=== PATIENT | male | born 1940 | race Caucasian/White ===

== ENCOUNTER 2023-12-19 18:33 | Inpatient (IN) | payer OTHER ==
[2023-12-19] MEDS ORDERED: MORPHINE 4 MG/ML SYR ONE ×2 (20:47→23:17)
[2023-12-19] MEDS ORDERED: ONDANSETRON 4 MG/2 ML VIAL ONE (20:47)
[2023-12-19] MEDS ORDERED: NA CHLORIDE 0.9% 1,000 ML ONE (20:48)
[2023-12-19 20:59] LABS: Absolute Lymphocytes (CBC) 1.7 K/uL (0.7-4.9); Absolute Monocytes 1.7 K/uL (0.1-1.3); Absolute Neutrophil 9.2 K/uL (1.8-8.0); Basophils % 0.3 % (0-1.3); Eosinophils % 0.2 % (0-4.4); Hematocrit 48.6 % (39.6-49.0); Lymphocytes % 13.2 % (15.3-44.8); MCH 31.5 pg (27.0-35.0); MCHC 32.8 g/dL (32.0-36.0); MCV 96.1 fL (80-100); MPV 8.1 fL (7.6-11.3); Monocytes % 13.2 % (3.3-12.3); Neutrophils % 73.1 % (41.7-73.7); Nucleated Red Blood Cells % 0.1 % (0-0); Platelets 304 thou/uL (152-406); RBC Red Blood Cell Count 5.06 M/uL (4.33-5.43); Red Cell Distribution Width 13.4 % (12.1-15.2)
[2023-12-19 21:02] LABS: Specific Gravity 1.028 (1.005-1.030); Sqamous Epithelial <5 /HPF (None Seen); Urine Bacteria <20 /HPF (<20); Urine Bilirubin NEGATIVE (Negative); Urine Blood 1+ (Negative); Urine Clarity Turbid (Clear); Urine Color Yellow (Yellow); Urine Culture Reflex Order NOT NEEDED; Urine Glucose NEGATIVE (Negative); Urine Ketones 1+ (Negative); Urine Microscopic Reflex YN ORDER UMIC; Urine Mucus Slight /HPF (None Seen); Urine Nitrite NEGATIVE (Negative); Urine Protein 1+ (Negative); Urine Urobilinogen Normal (Normal); Urine WBC <5 /HPF (<5); Urine pH 5.5 (5.0-7.0)
[2023-12-19 21:14] LABS: Albumin 3.7 g/dL (3.4-5.0); Albumin/Globulin Ratio 0.9 (1.1-1.8); Anion Gap 11.1 mEq/L (5.0-15.0); Bilirubin Total 0.9 mg/dL (0.2-1.0); Potassium 4.1 mEq/L (3.5-5.1); Protein, Total 7.7 g/dL (6.4-8.2)
[2023-12-19 22:02] LABS: C-Reactive Protein 34.2 mg/L (<3.00)
--- NOTE | 2023-12-19 22:37 | RAD REPORT ---
EXAM DESCRIPTION: CT - Abdomen Pelvis Wo Contrast - 12/19/2023 10:07 pm CLINICAL HISTORY: Abdominal pain COMPARISON: None TECHNIQUE: Computed axial tomography of the abdomen and pelvis was obtained. IV and oral contrast we re not requested. All CT scans are performed using dose optimization technique as appropriate and may include automated exposure control or mA/KV adjustment according to patient size. FINDINGS: The evaluation of solid organs, vessels and bowel is limited secondary to the lack of con trast administration. Bilateral renal cysts. Some are simple and some are complex. Tiny right renal calculus Moderate right hydronephrosis. 6 millimeter calculus mid right ureter. Liver, spleen, pancreas and adrenals grossly A small umbilical hernia Prostate gland moderately enlarged. No evidence diverticulitis Small hiatal hernia IMPRESSION: 6 millimeter calculus mid right ureter resulting in moderate right hydronephrosis
--- NOTE | 2023-12-19 23:02 | ER ---
Nurse's Notes [facility] Name: Martín Bee Age: 83 yrs Sex: Male : 1940 Arrival Date: 12/19/2023 Time: 18:33 Bed 20 Private MD: Diagnosis: Right Ureteral Stone With Obstruction and Hydronephrosis , Presentation: 12/18 18:55 Chief complaint: Patient states: low abdominal pain and low back pain onset Tuesday cm10 Morning. Pt also reports urinary frequency and low grade fever at home. Coronavirus screen: Client denies travel out of the [place] in the last 14 days. At this time, the client does not indicate any symptoms associated with coronavirus-19. Ebola Screen: Patient denies travel to an Ebola-affected area in the 21 days before illness onset. No symptoms or risks identified at this time. Initial Sepsis Screen: Does the patient meet any 2 criteria? No. Patient's initial sepsis screen is negative. Does the patient have a suspected source of infection? No. Patient's initial sepsis screen is negative. Risk Assessment: Do you want to hurt yourself or someone else? Patient reports no desire to harm self or others. Onset of symptoms was December 19, 2023. 18:55 Method Of Arrival: Wheelchair cm10 18:55 Acuity: CHANDLER 3 cm10 Triage Assessment: 19:02 General: Appears in no apparent distress. uncomfortable, Behavior is calm, cooperative, cm10 appropriate for age. Neuro: No deficits noted. Level of Consciousness is awake, alert, obeys commands, Oriented to person, place, time, situation, Appropriate for age. Historical: - Allergies: 19:01 No Known Allergies; cm10 - PMHx: 19:01 Hypertensive disorder; Kidney stone; Pancreatitis; Hypercholesterolemia; cm10 - Immunization history:: Adult Immunizations up to date. - Infectious Disease History:: Denies. - Social history:: Smoking status: Patient denies any tobacco usage or history of. - Family history:: not pertinent. - Hospitalizations: : No recent hospitalization is reported. Screenin:00 [facility] ED Fall Risk Assessment (Adult) History of falling in the last 3 months, me1 including since admission No falls in past 3 months (0 pts) Confusion or Disorientation No (0 pts) Intoxicated or Sedated No (0 pts) Impaired Gait No (0 pts) Mobility Assist Device Used No (0 pt) Altered Elimination No (0 pt) Score/Fall Risk Level 0 - 2 = Low Risk Maintained a safe environment, Provided non-skid footwear, Hourly rounding (assess needs \T\ fall precautionary measures) done. Abuse screen: Denies threats or abuse. Nutritional screening: No deficits noted. Tuberculosis screening: No symptoms or risk factors identified. Assessment: 21:00 General: Appears uncomfortable, ill, well groomed, well developed, well nourished, me1 Behavior is calm, cooperative, appropriate for age, Reports low abdominal pain and low back pain onset Tuesday Morning. Pt also reports urinary frequency and low grade fever at home. Pain: Complains of pain in suprapubic area Pain radiates to left low back and right low back Pain currently is 7 out of 10 on a pain scale. Quality of pain is described as pressure, sharp, Pain began gradually, 1 day ago. Is continuous. Neuro: Level of Consciousness is awake, alert, obeys commands, Oriented to person, place, time, situation, Appropriate for age. Cardiovascular: Patient's skin is warm and dry. Respiratory: Airway is patent Respiratory effort is even, unlabored, Respiratory pattern is regular, symmetrical. GI: No signs and/or symptoms were reported involving the gastrointestinal system. : Reports pain in suprapubic area in lower back since tuesday urinary frequency. EENT: No signs and/or symptoms were reported regarding the EENT system. Derm: Skin is intact, is healthy with good turgor, Skin is pink, warm \T\ dry. Musculoskeletal: No signs and/or symptoms reported regarding the musculoskeletal system. 12/19 00:00 General: Appears in no apparent distress. uncomfortable, Behavior is calm, cooperative, jw7 appropriate for age. 00:00 Pain: Complains of pain in abdomen Pain radiates to right low back and left low back jw7 Pain currently is 4 out of 10 on a pain scale. Quality of pain is described as pressure, sharp, Pain began gradually, Is continuous. Neuro: Level of Consciousness is awake, alert, obeys commands, Oriented to person, place, time, situation, Appropriate for age. Cardiovascular: Heart tones S1 S2 present Capillary refill < 3 seconds Clubbing of nail beds is absent JVD is absent Patient's skin is warm and dry. Respiratory: Airway is patent Trachea midline Respiratory effort is even, unlabored, Respiratory pattern is regular, symmetrical. GI: Abdomen is flat, non-distended, Bowel sounds present X 4 quads. Abd is soft Reports lower abdominal pain. : Reports pain urinary frequency. EENT: No deficits noted. No signs and/or symptoms were reported regarding the EENT system. Derm: Skin is intact, is healthy with good turgor, Skin is dry, Skin is normal, Skin temperature is warm. Musculoskeletal: Circulation, motion, and sensation intact. Range of motion: intact in all extremities. 01:00 General: Pt admitted to ER HOLD, please see [facility] for Charting and Vital Signs. jw7 Vital Signs: 12/18 18:55 BP 156 / 82; Pulse 75; Resp 18; Temp 97.6(O); Pulse Ox 98% on R/A; Weight 73.94 kg; cm10 Height 6 ft. 0 in. ; Pain 7/10; 19:30 BP 146 / 79; Pulse 70; Resp 16; Pulse Ox 96% on R/A; me1 21:30 BP 169 / 77; Pulse 67; Resp 15; Pulse Ox 95% on R/A; me1 22:30 BP 172 / 87; Pulse 74; Resp 16; Pulse Ox 95% on R/A; me1 23:00 BP 170 / 83; Pulse 76; Resp 16; Pulse Ox 96% on R/A; me1 23:30 BP 158 / 75; Pulse 78; Resp 17; Pulse Ox 92% on R/A; me1 18:55 Body Mass Index 22.11 (73.94 kg, 182.88 cm) cm10 18:55 Pain Scale: Adult cm10 ED Course: 18:37 Patient arrived in ED. ra3 18:38 Dat Bryant MD is Attending Physician. rn 19:01 Triage completed. cm10 19:02 Arm band placed on Patient placed in waiting room. cm10 19:11 Radiology exam delayed due to IV insertion attempt and/or patient not having nj appropriate IV at this time. 19:11 Radiology exam delayed due to lab results not completed at this time. (BUN/Creatinine). nj 20:28 Summer Sanchez, RN is Primary Nurse. me1 20:45 Radiology exam delayed due to lab results not completed at this time. (BUN/Creatinine). nj 20:46 Initial lab(s) drawn, by ne, sent to lab. Urine collected: clean catch specimen, clear. me1 Inserted saline lock: 22 gauge in right antecubital area, using aseptic technique. 20:59 Attending Physician role handed off by Dat Bryant MD sp4 20:59 Christiano Paris MD is Attending Physician. sp4 21:00 Patient has correct armband on for positive identification. Bed in low position. Call me1 light in reach. Side rails up X2. Provided Education on: POC. Verbalized understanding.. Client placed on continuous cardiac and pulse oximetry monitoring. NIBP monitoring applied. Pulse ox on. NIBP on. 21:00 CBC with Diff Sent. me1 21:00 CMP Sent. me1 21:00 Lipase Sent. me1 21:00 Urinalysis w/ reflexes Sent. me1 21:00 No provider procedures requiring assistance completed. me1 22:09 CT Abd/Pelvis - Without Contrast In Process Unspecified. EDMS 23:01 Emily Garcia is Hospitalizing Provider. sp4 12/19 02:17 Patient admitted, IV remains in place. jw7 Administered Medications: 12/18 20:59 Drug: NS 0.9% IV 1000 ml IV at 1 bolus Per protocol; 1000 mL bolus Route: IV; Rate: 1 me1 bolus; Site: right antecubital; 23:28 Follow up: Response: No adverse reaction; IV Status: Completed infusion me1 20:59 Drug: Ondansetron IVP 4 mg IVP once; over 2 minutes Route: IVP; Site: right antecubital;me1 23:28 Follow up: Response: No adverse reaction; Nausea is decreased me1 21:00 Drug: morphine IVP or IV 4 mg IVP once over 4 mins Route: IVP; Infused Over: 4 mins; me1 Site: right antecubital; 23:28 Follow up: Response: No adverse reaction; Pain is decreased me1 23:24 Drug: Flomax PO 0.4 mg PO once Route: PO; me1 23:24 Follow up: Response: No adverse reaction me1 23:24 Drug: morphine IVP or IV 4 mg IVP once over 4 mins Route: IVP; Infused Over: 4 mins; ne1 Site: right antecubital; 23:24 Follow up: Response: No adverse reaction; Pain is decreased me1 Medication: 21:00 VIS not applicable for this client. me1 Outcome: 23:02 Decision to Hospitalize by Provider. sp4 12/19 02:17 Admitted to ER Hold. Please see [facility] for further documentation. jw7 Condition: stable Instructed on the need for admit, Demonstrated understanding of instructions, 12:53 Patient left the ED. ll1 Signatures: Dispatcher [employer] EDMS Dat Bryant MD MD rn Jordan, Nathan nj Lewis, Lynsay, RN RN 1 Angelica Crews RN RN jw7 Christiano Paris MD MD sp4 Karen Ware RN RN cm10 Summer Sanchez RN RN ne1 Viviane Ríos 3 Corrections: (The following items were deleted from the chart) 12/18 23:06 18:55 Chief complaint: Patient states: low abdominal pain and low back pain onset me1 Tuesday Morning. Pt also reports urinary frequency and low grade fever at home. cm10
--- NOTE | 2023-12-19 23:02 | EDPHYS ---
Physician Documentation [facility] Name: Martín Bee Age: 83 yrs Sex: Male : 1940 Arrival Date: 12/19/2023 Time: 18:33 Bed 20 Private MD: ED Physician Christiano Paris HPI: 12/18 19:35 This 83 yrs old Male presents to ER via Wheelchair with complaints of Low Back Pain - rn stomach pain. 19:35 The patient presents with abdominal pain in the lower abdomen. Onset: The rn symptoms/episode began/occurred yesterday. The symptoms radiate to back. Associated signs and symptoms: Pertinent positives: dysuria, fever, nausea, Pertinent negatives: blood in stools, chest pain. Modifying factors: The symptoms are alleviated by nothing, the symptoms are aggravated by nothing. Severity of pain: At its worst the pain was moderate in the emergency department the pain is unchanged. The patient has not experienced similar symptoms in the past. Patient reports lower abdominal pain, radiates to back, associated with nausea and increased urinary frequency. Began yesterday. Reported subjective fever and chills.. Historical: - Allergies: 19:01 No Known Allergies; cm10 - PMHx: 19:01 Hypertensive disorder; Kidney stone; Pancreatitis; Hypercholesterolemia; cm10 - Immunization history:: Adult Immunizations up to date. - Infectious Disease History:: Denies. - Social history:: Smoking status: Patient denies any tobacco usage or history of. - Family history:: not pertinent. - Hospitalizations: : No recent hospitalization is reported. ROS: 19:35 Constitutional: Positive for fever and chills Cardiovascular: Negative for chest pain, rn palpitations, and edema, Respiratory: Negative for shortness of breath, cough, wheezing, and pleuritic chest pain, Abdomen/GI: Positive for lower abdominal pain with nausea Back: Positive for lower back pain : Positive for increased urinary frequency MS/Extremity: Negative for injury and deformity, Skin: Negative for injury, rash, and discoloration, Neuro: Positive for generalized weakness Exam: 19:35 Constitutional: This is a well developed, well nourished patient who is awake, alert, rn appears like does not feel well Head/Face: Normocephalic, atraumatic. Cardiovascular: Regular rate and rhythm. No pulse deficits. Respiratory: No increased work of breathing, no retractions or nasal flaring. Abdomen/GI: Soft, periumbilical and suprapubic tenderness, no peritoneal signs Back: No CVA tenderness MS/ Extremity: Pulses equal, no cyanosis. Neuro: Awake and alert, GCS 15 Vital Signs: 18:55 BP 156 / 82; Pulse 75; Resp 18; Temp 97.6(O); Pulse Ox 98% on R/A; Weight 73.94 kg; cm10 Height 6 ft. 0 in. ; Pain 7/10; 19:30 BP 146 / 79; Pulse 70; Resp 16; Pulse Ox 96% on R/A; me1 21:30 BP 169 / 77; Pulse 67; Resp 15; Pulse Ox 95% on R/A; me1 22:30 BP 172 / 87; Pulse 74; Resp 16; Pulse Ox 95% on R/A; me1 23:00 BP 170 / 83; Pulse 76; Resp 16; Pulse Ox 96% on R/A; me1 23:30 BP 158 / 75; Pulse 78; Resp 17; Pulse Ox 92% on R/A; me1 18:55 Body Mass Index 22.11 (73.94 kg, 182.88 cm) cm10 18:55 Pain Scale: Adult cm10 MDM: 18:38 Patient medically screened. rn 20:16 Transition of care: After a detail discussion of the patient's case, care is rn transferred to Christiano Paris MD. 23:00 ED course: EXAM DESCRIPTION: CT - Abdomen Pelvis Wo Contrast - 12/19/2023 10:07 pm sp4 CLINICAL HISTORY: Abdominal pain COMPARISON: None TECHNIQUE: Computed axial tomography of the abdomen and pelvis was obtained. IV and oral contrast were not requested. All CT scans are performed using dose optimization technique as appropriate and may include automated exposure control or mA/KV adjustment according to patient size. FINDINGS: The evaluation of solid organs, vessels and bowel is limited secondary to the lack of contrast administration. Bilateral renal cysts. Some are simple and some are complex. Tiny right renal calculus Moderate right hydronephrosis. 6 millimeter calculus mid right ureter. Liver, spleen, pancreas and adrenals grossly A small umbilical hernia Prostate gland moderately enlarged. No evidence diverticulitis Small hiatal hernia IMPRESSION: 6 millimeter calculus mid right ureter resulting in moderate right hydronephrosis . 12/19 01:32 Differential diagnosis: cholecystitis, Cholelithiasis, diverticulitis, gastritis, Renal sp4 stones. 01:32 Data reviewed: vital signs, nurses notes, lab test result(s), radiologic studies, CT sp4 scan. 12/18 19:02 Order name: CBC with Diff; Complete Time: 21:25 rn 12/18 19:02 Order name: CMP; Complete Time: 22:56 rn 12/18 19:02 Order name: Lipase; Complete Time: 22:56 rn 12/18 19:02 Order name: Urinalysis w/ reflexes; Complete Time: 21:25 rn 12/18 21:53 Order name: C-Reactive Protein; Complete Time: 22:56 EDMS 12/19 00:40 Order name: Urinalysis w/ reflexes EDMS 12/19 00:40 Order name: CBC with Automated Diff EDMS 12/19 00:40 Order name: CBC with Automated Diff EDMS 12/19 00:40 Order name: Comprehensive Metabolic Panel EDMS 12/19 00:40 Order name: Comprehensive Metabolic Panel EDMS 12/19 12:36 Order name: Protime (+INR) EDMS 12/18 21:38 Order name: CT Abd/Pelvis - Without Contrast; Complete Time: 22:56 sp4 12/19 12:25 Order name: RAD EDMS 12/18 19:02 Order name: IV Saline Lock; Complete Time: 21:00 rn 12/18 19:02 Order name: Labs collected and sent; Complete Time: 21:00 rn Administered Medications: 12/18 20:59 Drug: NS 0.9% IV 1000 ml IV at 1 bolus Per protocol; 1000 mL bolus Route: IV; Rate: 1 me1 bolus; Site: right antecubital; 23:28 Follow up: Response: No adverse reaction; IV Status: Completed infusion me1 20:59 Drug: Ondansetron IVP 4 mg IVP once; over 2 minutes Route: IVP; Site: right antecubital;me1 23:28 Follow up: Response: No adverse reaction; Nausea is decreased me1 21:00 Drug: morphine IVP or IV 4 mg IVP once over 4 mins Route: IVP; Infused Over: 4 mins; me1 Site: right antecubital; 23:28 Follow up: Response: No adverse reaction; Pain is decreased me1 23:24 Drug: Flomax PO 0.4 mg PO once Route: PO; me1 23:24 Follow up: Response: No adverse reaction me1 23:24 Drug: morphine IVP or IV 4 mg IVP once over 4 mins Route: IVP; Infused Over: 4 mins; me1 Site: right antecubital; 23:24 Follow up: Response: No adverse reaction; Pain is decreased me1 Disposition Summary: 12/19/23 23:02 Hospitalization Ordered Notes: Hospitalization Status: Observation sp4 Provider: Emily Garcia sp4 Condition: Stable sp4 Problem: new sp4 Symptoms: have improved sp4 Bed/Room Type: Standard sp4 Location: Telemetry/MedSurg (observation)(12/20/23 11:35) bd Room Assignment: 219(12/20/23 11:35) bd Diagnosis - Right Ureteral Stone With Obstruction and Hydronephrosis , sp4 Forms: - Medication Reconciliation Form sp4 - SBAR form sp4 - Leadership Thank You Letter sp4 Signatures: Dispatcher [employer] EDMS Sherri Coronado Roman, MD MD rn Bryson, James RN RN jb4 Christiano Paris MD MD sp4 Karen Ware RN RN cm10 Summer Sanchez RN RN me1 Corrections: (The following items were deleted from the chart) 21:39 21:39 Abdomen Pelvis Wo Con+CT.RAD.BRZ ordered. EDMS EDMS 21:44 19:02 Abdomen Pelvis W Con+CT.RAD.BRZ ordered. EDMS EDMS 21:53 21:38 C-REACTIVE PROTEIN+C.LAB.BRZ ordered. EDMS EDMS 23:52 23:02 Telemetry/MedSurg (observation) sp4 jb4 23:52 23:02 sp4 jb4 12/19 11:35 12/18 23:52 [facility] ER HOLD jb4 bd 12/19 11:12/18 23:52 ERHOLD- jb4 bd
[2023-12-19] MEDS ORDERED: TAMSULOSIN 0.4 MG SR CAP ONE (23:17)
[2023-12-20] MEDS ORDERED: MORPHINE 2 MG/ML SYR IV PRN (00:29)
[2023-12-20 01:41] VITALS: BMI 22.1
--- NOTE | 2023-12-20 02:02 | P.HP ---
Certification for Inpatient Patient admitted to: Inpatient With expected LOS: >2 Midnights Practitioner: I am a practitioner with admitting privileges, knowledge of patient current condition, hospital course, and medical plan of care. Services: Services provided to patient in accordance with Admission requirements found in Title 42 Section 412.3 of the Code of Federal Regulations Patient History Date of Service: 12/20/23 History of Present Illness: 83-year-old male presents with complaints of right lower quadrant periumbilical abdominal pain that radiated to his back. Onset 1 day ago. Pain progressively gotten worse. Denies having any fevers or dysuria. Reports pain was mostly anterior abdomen. He did report some nausea. Reports symptoms started early Tuesday morning. Pain progressed and presented to ER. In the ED patient had a CT scan of abdomen pelvis which showed obstructive renal stone. Urology was consulted. The patient reports that he had history of kidney stone 20 years ago. He does have multiple surgeries in the past including history of prostate, hernia as well as eye surgery. He denies having fevers but states he did feel warm with a temperature of 99 degrees. He does report he receives his medications at the [place] but receives medical care outside of [place]. In the ER urology was contacted recommend to make the patient n.p.o. for evaluation tomorrow - Past Medical/Surgical History Has patient received pneumonia vaccine in the past: Yes -: HTN -: Kidney Stones -: Pancreatitis -: Hypercholesterolemia - Social History Smoking Status: Never smoker Place of Residence: Home Review of Systems 10-point ROS is otherwise unremarkable General: Fever, Weakness, Malaise Gastrointestinal: Nausea, Abdominal Pain Physical Examination - Physical Exam General: Alert, Mild distress HEENT: Atraumatic, Normocephalic Neck: Supple Respiratory: Clear to auscultation bilaterally, Normal air movement Cardiovascular: No edema, Normal S1 S2 Gastrointestinal: Normal bowel sounds, Non-distended, No ascites, No masses, Tenderness Integumentary: No rashes Urinary: Other (no flank pain on exam ) - Studies Laboratory Data (last 24 hrs) 12/19/23 12/19/23 20:44 20:44 WBC 12.60 H Hgb 16.0 Hct 48.6 Plt Count 304 Sodium 136 Potassium 4.1 BUN 17 Creatinine 1.80 H Glucose 118 H Total Bilirubin 0.9 AST 31 ALT 33 Alkaline Phosphatase 98 Lipase 41 Assessment and Plan - Problems (Diagnosis) (1) Nephrolithiasis Current Visit: Yes Status: Acute (2) Abdominal pain Current Visit: Yes Status: Acute (3) Nausea Current Visit: Yes Status: Acute (4) Hydronephrosis Current Visit: Yes Status: Acute - Plan 83-year-old male presented with progressive abdominal pain. Diagnosed with obstructive kidney stone #Nephrolithiasis #Hydronephrosis #abdominal Pain #Leukocytosis #abnormal UA -- Admit to MedSur. Keep NPO. Urology consultation. IV fluids. Continue Rocephin. Follow-up cultures. Noted to have normal lipase -- PRN antiemetics #HTN -- Will hold antihypertensive medications overnight anticipate resuming tomorrow pending clinical course --prn hydralazine #JULIUS -- Continue IV fluids, repeat labs in a.m. Code: DNR/DNI Discharge Plan: Home Plan to discharge in: 48 Hours - Advance Directives Does patient have a Living Will: No Does patient have a Durable POA for Healthcare: No - Code Status/Comfort Care Code Status: Do Not Attempt Resuscitat
[2023-12-20] MEDS: NA CHLORIDE 0.9% 1,000 ML IV SCH (06:00)
[2023-12-20] MEDS ORDERED: NA CHLORIDE 0.9% 1,000 ML ONE (06:12)
[2023-12-20] MEDS ORDERED: CEFTRIAXONE 1000 MG/VIAL ONE (08:54)
[2023-12-20] MEDS ORDERED: NA CHLORIDE 0.9% 50 ML ONE (08:56)
[2023-12-20] MEDS ORDERED: ENOXAPARIN 40 MG/0.4 ML SQ SCH (09:00)
[2023-12-20] MEDS: CEFTRIAXONE 1,000 MG in NA CHLORIDE 0.9% 50 ML IVPB SCH (09:59)
--- NOTE | 2023-12-20 12:24 | RAD REPORT ---
EXAM DESCRIPTION: RAD - Chest Single View - 12/20/2023 12:12 pm CLINICAL HISTORY: or clearance Chest pain. COMPARISON: No comparisons FINDINGS: Portable technique limits examination quality. Emphysematous changes are present throughout the lungs. The heart is normal in size. No displaced fra ctures. IMPRESSION: Prominent COPD.
[2023-12-20 12:36] LABS: PT Prothrombin Time 11.7 SECONDS (9.4-12.5); Protime INR 1.05
[2023-12-20] MEDS: Ringers Lactate 1,000 ML IV ONE (13:00)
[2023-12-20] MEDS ORDERED: LIDOCAINE 1% MPF 5 ML VIAL ONE (13:01)
[2023-12-20] MEDS ORDERED: propofoL 200 MG/20 ML VIAL IV ONE (13:01)
[2023-12-20] MEDS ORDERED: FENTANYL CITR 250 MCG/5 ML ONE (13:01)
[2023-12-20] MEDS ORDERED: MIDAZOLAM HCL 2 MG/2 ML INJ ONE (13:01)
--- NOTE | 2023-12-20 13:17 | P.CNS ---
Date of Consult: 12/20/23 Reason for Consult: flank pain Chief Complaint: kidney stone History of Present Illness: 83-year-old gentleman with hypertension, hypercholesterolemia and history of pancreatitis as well as prior history of nephrolithiasis presents to the emergency department with some lower abdominal pain and right flank pain that have been present since Tuesday at 3 AM. He had had some chills as well as a low-grade temperature up to 99.5. He denied any vomiting, but he did have nausea. He denied any associated dysuria or gross hematuria. Past medical history: As above Past surgical history: Kidney stone surgery 20 years ago, TURP 20 years ago, bilateral inguinal hernias repaired Family history: Denies urologic malignancy Social history: He is a former smoker of 1/5 pack/day for 20 years but he quit in 1974 Examination: Alert and awake, oriented in no acute distress No dyspnea or sign of respiratory distress No cervical/supraclavicular adenopathy or thyromegaly Very hard of hearing Abdomen soft, nontender, nondistended No lower extremity tenderness or Homans' sign Lying comfortably in the bed able to move all extremities on request 12/20/2023 WBC 12.6, hemoglobin 16.0, platelets 304, creatinine 1.80 with EGFR 37, UA micro 1+ heme, 5-10 RBCs per hpf,trace leukocyte Estrace, <5 WBCs per hpf 12/19/2023 CT abdomen and pelvis without contrast findings: Bilateral simple and complex renal cysts. Tiny right renal calculus. Moderate right hydronephrosis. 6 mm calculus mid right ureter. No other significant abnormalities. Prostate gland moderately enlarged. -To my review of the CT scan, the right calculus seen in the kidney was intraparenchymal and small. A calculus in the mid ureter was 7 mm with moderate hydroureteronephrosis. The cysts were varying in size with density changes. 12/19/2023 chest x-ray IMPRESSION: Prominent COPD. Assessment and recommendation: 83-year-old gentleman with hypertension, hypercholesterolemia, history of pancreatitis and nephroureterolithiasis with right flank pain and right lower quadrant abdominal pain secondary to obstructing the right ureterolithiasis with right hydronephrosis and JULIUS suspected. -I counseled the patient that given the low-grade temperature experienced and his advanced age, he may not mount as well a febrile response, and the risks associated with attempting definitive management of his stone via ureteroscopy with laser lithotripsy could precipitate risk of systemic illness. As a result, I said the better point of valor would be to relieve the obstruction and allow resolution of his suspected JULIUS and then return at a later date to definitively manage the stone. He and his family agreed. -Cystoscopy with right retrograde pyelography and right ureteral stent placement recommended. I explained how the procedure was performed in detail, and we discussed the potential risks of infection, bleeding/gross hematuria, stent discomfort. -5% risk of need for percutaneous nephrostomy tube placement discussed if unable to place the stent. -Outpatient follow-up and rescheduling for definitive ureteroscopic management of his stone with laser lithotripsy will be required. -He is seen at the local [facility] for his primary care, and preoper ative evaluation/clearance may be requested from them as he was recently seen. -EKG and chest x-ray (above) in preparation for operative intervention shortly today. -N.p.o. Allergies No Known Allergies Allergy (Unverified 12/20/23 03:03) Home medications list reviewed: Yes Home Medications: Amlodipine [Norvasc*] 5 mg PO DAILY 12/20/23 Atorvastatin Calcium 40 mg PO BEDTIME 12/20/23 Celecoxib 200 mg PO QID 12/20/23 Cholecalciferol (Vitamin D3) [Vitamin D 5,000 IU Cap*] 5,000 unit PO DAILY 12/20/23 Trazodone HCl 100 mg PO BEDTIME 12/20/23 - Past Medical/Surgical History -: HTN -: Kidney Stones -: Pancreatitis -: Hypercholesterolemia - Social History Place of Residence: Home Physical Examination Temp Pulse Resp BP Pulse Ox 97.6 F 77 16 155/80 H 96 12/19/23 18:55 12/20/23 04:00 12/20/23 04:00 12/20/23 04:00 12/20/23 04:00 Laboratory Data (last 24 hrs) 12/19/23 12/19/23 20:44 20:44 WBC 12.60 H Hgb 16.0 Hct 48.6 Plt Count 304 Sodium 136 Potassium 4.1 BUN 17 Creatinine 1.80 H Glucose 118 H Total Bilirubin 0.9 AST 31 ALT 33 Alkaline Phosphatase 98 Lipase 41 - Problems (1) Acute right flank pain Current Visit: Yes Status: Acute (2) Hydronephrosis, right Current Visit: Yes Status: Acute (3) Ureterolithiasis Current Visit: Yes Status: Acute (4) Recurrent nephrolithiasis Current Visit: Yes Status: Acute (5) JULIUS (acute kidney injury) Current Visit: Yes Status: Acute (6) Abdominal pain Current Visit: Yes Status: Acute Qualifiers: Abdominal location: lower abdomen, unspecified Qualified Code(s): R10.30 - Lower abdominal pain, unspecified Conclusions/Impression: see A&P in HPI Critical Care: No Time Spent Managing Pts care (In Minutes): 35
[2023-12-20] MEDS: EPHEDRINE SULF 50 MG/ML VIAL ONE (13:43)
--- NOTE | 2023-12-20 14:08 | P.OP ---
Date of Service: 12/20/23 Preoperative diagnoses: Obstructive ureterolithiasis Right hydroureteronephrosis Acute kidney injury History of nephroureterolithiasis Complex renal cysts h/o TURP Postoperative diagnoses: Obstructive ureterolithiasis Right hydroureteronephrosis Acute kidney injury History of nephroureterolithiasis Complex renal cysts h/o TURP Principal procedures: Cystoscopy Right retrograde pyelography Right ureteral stent placement Indication for procedure: 83-year-old gentleman with hypertension, hypercholesterolemia, history of pancreatitis and nephroureterolithiasis with right flank pain and right lower quadrant abdominal pain secondary to obstructing the right ureterolithiasis with right hydronephrosis and JULIUS suspected. Procedure note: Consent was obtained in the preoperative holding area before he was transferred to the operative suite where general anesthesia was induced. He had been given ceftriaxone IV antimicrobial therapy in the emergency department. Pneumoboots were provided for DVT prophylaxis. He was placed in the lithotomy position, padded and secured to the table appropriately. His genitalia was prepped with Hibiclens and he was draped in standard fashion. The case was begun using a 22 [place]ian rigid cystoscope to traverse the urethra and into the bladder with ease. There was evidence of a prior TUR defect largely at the bladder neck. The bladder was mild to moderately trabeculated throughout. No papillary mucosal lesions, foreign bodies or stones were noted. The ureteral orifices were orthotopic in location. As such, I cannulated the right ureteral orifice using the tip of a 5 [place]ian ureteral access catheter. Right retrograde pyelography: Using a 70: 30 mixture of Omnipaque and saline, contrast was injected via the lumen of the 5 [place]ian ureteral access catheter and did propagate up the distal into the mid and proximal ureter before entering the renal pelvis and a very delayed fashion. Significant proximal ureteral dilation and pelviectasis as well as caliectasis was observed. A radiopaque calculus was also observed in the mid ureter. As a result, I passed a sensor wire via the 5 [place]ian ureteral access catheter and was able to easily navigated beyond the point of obstructing calculus and into the upper pole of the kidney. I then remove the 5 [place]ian ureteral access catheter leaving the wire in place, and passed over the wire a 6 [place]ian by 26 cm double-J ureteral stent. A coil was observed fluoroscopically in the upper pole of the right kidney and 1 cystoscopically was formed in his bladder. I then decompressed his bladder of fluid and urine, and I remove the cystoscope. He was then taken out of the lithotomy position, awakened from general anesthesia, transferred to a stretcher, and then transferred to the recovery room in good condition. Complications: None Discharge disposition: Outpatient follow-up will be required to discuss the followin. Need for definitive management of his obstructive ureterolithiasis via ureteroscopy with laser lithotripsy and stent exchange. ESWL could also be considered given the radiopaque nature of the calculus. 2. Metabolic stone profile assessment recommended after management of his obstructive ureterolithiasis. 3. Confirm resolution of his JULIUS and obtain a CT with IV contrast to compare with the noncontrast imaging and determine the degree of complexity of/Bosniak classify his bilateral complex renal cystic lesions. Consider MRI if baseline creatinine still inadequate.
[2023-12-20] MEDS: PHENAZOPYRIDINE 100MG TAB PO ONE ×2 (14:45)
--- NOTE | 2023-12-20 14:56 | RAD REPORT ---
EXAM DESCRIPTION: RAD - Urethrocystogrphy Retrograde - 12/20/2023 2:04 pm CLINICAL HISTORY: CYSTO COMPARISON: None available. FINDINGS: 4 images were sent to PACS, documenting fluoroscopy use during an image guided retrograde uretherocystography procedure. No radiologist was available for the procedure, nor will any image int erpretation he provided. Please refer to the procedural report for additional details. Fluoroscopy time: 0.09 minutes. IMPRESSION: Documentation of fluoroscopy utilization as above.
--- NOTE | 2023-12-20 22:28 | P.PN ---
Date of Service: 12/20/23 patient seen on rounds this morning ~7:50am reports pain improved after IV medication remote h/o stone awaiting urology - planning stent placement today will f/u after procedure check renal fxn in AM confirm home meds / restart as appropriate
[2023-12-21 06:19] LABS: Absolute Basophils 0.1 K/uL (0-0.5); Absolute Eosinophils 0.1 K/uL (0-0.5); Absolute Lymphocytes (CBC) 1.7 K/uL (0.7-4.9); Absolute Neutrophil 4.8 K/uL (1.8-8.0); Basophils % 0.8 % (0-1.3); Eosinophils % 0.8 % (0-4.4); Hematocrit 40.1 % (39.6-49.0); Hemoglobin 13.4 g/dL (13.6-17.9); Lymphocytes % 22.2 % (15.3-44.8); MCH 32.1 pg (27.0-35.0); MCHC 33.4 g/dL (32.0-36.0); MCV 96.2 fL (80-100); MPV 8.3 fL (7.6-11.3); Monocytes % 12.6 % (3.3-12.3); Neutrophils % 63.6 % (41.7-73.7); Nucleated Red Blood Cells % 0.3 % (0-0); Platelets 250 thou/uL (152-406); RBC Red Blood Cell Count 4.17 M/uL (4.33-5.43); Red Cell Distribution Width 13.1 % (12.1-15.2)
[2023-12-21 06:30] LABS: Anion Gap 8.5 mEq/L (5.0-15.0); Potassium 3.5 mEq/L (3.5-5.1)
--- NOTE | 2023-12-21 08:12 | P.PN ---
Date of Service: 12/21/23 Subjective: had condom cath placed d/t hematuria overnight / positional incontinence catheter with dark bloody urine minimal appetite. somewhat nauseous pain tolerable. slightly improved ROS: 10 point ROS as noted above, otherwise negative Physical Exam: GEN: Alert, oriented, appears restless HEENT: Normal conjunctiva, sclera anicteric CV: Regular rate and rhythm, no edema Pulm: Nonlabored respirations on room air, clear bilaterally ABD: soft, nontender, nondistended Neuro: Normal speech, normal affect Condom cath placed overnight d/t hematuria; tubing with dark red bloody urine this morning Problem List: Obstructive ureterolithiasis with right hydroureteronephrosis, s/p right retrograde pyelography and right ureteral stent placement (12/19) Hematuria after stent placement hx of nephroureterolithiasis JULIUS, resolved Complex renal cysts h/o TURP (20+ years ago) COPD, chronic Hyperlipidemia CT abdomen (12/18): 6mm right ureter calculus with moderate right sided hydro. Mix of simple and complex bilateral renal cysts. Dr. Sim, urology, consulted s/p right retrograde pyelography and right ureteral stent placement (12/19) will need to follow up with urology as outpatient for ureteroscopy with laser lithotripsy and stent exchange. recommend outpatient CT with contrast or MRI to further evaluate complexity of renal cystic lesions. 12/20 - overnight patient had condom cath placed d/t hematuria - currently draining dark red bloody urine. continue empiric rocephin for now (12/19-) plan to discharge with 1 week of cefixime per Dr. Sim JULIUS resolved after stent placement / IVF confirm home meds, restart as appropriate continue home amlodipine, statin continue IV fluids VTE: hold secondary to arline hematuria Code: DNR Dispo: Home, ~48hrs Time Spent Managing Pts Care (In Minutes): 45
[2023-12-21] MEDS: ONDANSETRON 4 MG/2 ML VIAL IV PRN (08:29)
[2023-12-21] MEDS: AMLODIPINE 5 MG TAB PO SCH (09:00)
--- NOTE | 2023-12-21 11:46 | EKG ---
Test Date: 2023-12-20 Test Time: 12:11:20 Mortgage Manager: CLAU MEASUREMENT RESULTS: Intervals: Rate: 72 [place]: QRSD: 92 QT: 388 QTc: 424 [place]: P: [place]: QRS: 65 T: 31 INTERPRETIVE STATEMENTS: Normal sinus rhythm Abnormal ECG No previous ECG available for comparison Electronically Signed On 12-21-23 11:43:51 CDT by Yuniel Hayes
[2023-12-21] MEDS: HYDRALAZINE HCL 20 MG/ML VIAL IV PRN (13:22)
[2023-12-21] MEDS: OXYBUTYNIN ER 5 MG TAB PO ONE (17:17)
[2023-12-21] MEDS: ATORVASTATIN 40 MG TAB PO SCH (20:46)
[2023-12-21] MEDS: ACETAMINOPHEN 325 MG TABLET PO PRN (20:53)
[2023-12-22 05:43] LABS: Absolute Basophils 0.1 K/uL (0-0.5); Absolute Lymphocytes (CBC) 1.5 K/uL (0.7-4.9); Absolute Monocytes 0.9 K/uL (0.1-1.3); Absolute Neutrophil 5.6 K/uL (1.8-8.0); Basophils % 0.8 % (0-1.3); Eosinophils % 0.5 % (0-4.4); Hematocrit 40.7 % (39.6-49.0); Hemoglobin 13.5 g/dL (13.6-17.9); Lymphocytes % 18.2 % (15.3-44.8); MCHC 33.2 g/dL (32.0-36.0); MCV 96.6 fL (80-100); MPV 8.8 fL (7.6-11.3); Monocytes % 11.5 % (3.3-12.3); Platelets 263 thou/uL (152-406); RBC Red Blood Cell Count 4.21 M/uL (4.33-5.43); Red Cell Distribution Width 12.9 % (12.1-15.2)
[2023-12-22 05:56] LABS: Anion Gap 9.3 mEq/L (5.0-15.0); Magnesium 1.6 mg/dL (1.6-2.4); Potassium 3.3 mEq/L (3.5-5.1)
[2023-12-22] MEDS: OXYBUTYNIN ER 5 MG TAB PO SCH (07:53)
--- NOTE | 2023-12-22 08:07 | RAD REPORT ---
EXAM DESCRIPTION: RAD - Abdomen 1 View (KUB) - 12/22/2023 7:48 am CLINICAL HISTORY: r/o stent migration, hematuria, R ureteral stent COMPARISON: Urethrocystogrphy Retrograde dated 12/20/2023 TECHNIQUE: Single AP view of the abdomen. FINDINGS: Right ureteral stent appears to be in overall stable position compared to the final intrap rocedural image, although there is a some straightening of its curve along the course of the ureter Nonobstructive bowel gas pattern. No air-fluid levels, free air, or pneumatosis. Pelvic phleboliths. Lower abdominal ventral hernia mesh tacks present. No significant bony abnormality. IMPRESSION: Overall stable positioning of right ureteric stent as above.
--- NOTE | 2023-12-22 08:14 | P.PN ---
Date of Service: 12/22/23 Subjective: condom cath removed yesterday tubing with bloody red urine, seems to be lightening up in color 100.8 fever this morning per nursing staff - checked by temporal probe - went to patient's bedside and room was warm and he was under covers had ~97.8 temp after rechecked orally within 20 minutes, had received tylenol <1 minute before recheck 1 large volume episode of diarrhea overnight ROS: 10 point ROS as noted above, otherwise negative Physical Exam: GEN: Alert, oriented, appears restless CV: Regular rate and rhythm, no edema Pulm: Nonlabored respirations on room air, clear bilaterally ABD: soft, nontender, nondistended Neuro: Normal speech, normal affect urine yumiko-maroonish Problem List: Obstructive ureterolithiasis with right hydroureteronephrosis, s/p right retrograde pyelography and right ureteral stent placement (12/19) diarrhea secondary to c.diff+ Hematuria after stent placement hx of nephroureterolithiasis JULIUS, resolved Complex renal cysts h/o TURP (20+ years ago) COPD, chronic Hyperlipidemia CT abdomen (12/18): 6mm right ureter calculus with moderate right sided hydro. Mix of simple and complex bilateral renal cysts. Dr. Sim, urology, consulted s/p right retrograde pyelography and right ureteral stent placement (12/19) KUB (12/21): confirmed stable positioning of R ureteric stent will need to follow up with urology as outpatient for ureteroscopy with laser lithotripsy and stent exchange. recommend outpatient CT with contrast or MRI to further evaluate complexity of renal cystic lesions. Hematuria started after stent placement lessening each day hgb stable, monitor 100.8 temperature this morning, but was 97.8 when rechecked orally patient's room was warm and he was under covers suspect 100.8 was not true fever initial sepsis workup was sent since was triggered, but oral temp recheck was normal no evidence of sepsis at this time 1 large volume episode of diarrhea overnight. No leukocytosis initial concern for c.diff given hospitalization, rocephin had 2 more large BMs later in morning- cdiff + 12/21 start PO vanc 12/21 dc empiric rocephin 12/19-12/21 JULIUS resolved after stent placement / IVF confirm home meds, restart as appropriate continue home amlodipine, statin continue IV fluids VTE: hold secondary to arline hematuria Code: DNR Dispo: Home, ~ 48hrs pending hematuria improves, afebrile > 24 hours, cultures cdiff improves Time Spent Managing Pts Care (In Minutes): 45
[2023-12-22 10:54] LABS: Sqamous Epithelial None Seen /HPF (None Seen); Urine Bacteria None Seen /HPF (<20); Urine Culture Reflex Order NOT NEEDED; Urine Micro Reflex YN NO BILL MICROSCOPIC; Urine Mucus 4+ /HPF (None Seen); Urine RBC >50 /HPF (None Seen); Urine WBC <5 /HPF (<5); Urine Yeast (Budding) Many /HPF (None Seen)
[2023-12-22 14:25] LABS: CDIFF INTERNAL NEG CONTROL White Background (WHITE BKGD); STOOL CONSISTENCY Liquid/Semi-Solid
[2023-12-22 14:27] LABS: C.diff Antigen/Toxin Ag pos : Tox pos (NEG : NEG)
[2023-12-22] MEDS: VANCOMYCIN HCL 125 MG CAPSULE PO SCH (15:38)
[2023-12-23] MEDS: NA CHLORIDE 0.9% 1,000 ML IV SCH (02:20)
[2023-12-23 05:09] LABS: Absolute Basophils 0.1 K/uL (0-0.5); Absolute Eosinophils 0.1 K/uL (0-0.5); Absolute Lymphocytes (CBC) 1.5 K/uL (0.7-4.9); Absolute Monocytes 0.9 K/uL (0.1-1.3); Absolute Neutrophil 4.8 K/uL (1.8-8.0); Basophils % 0.9 % (0-1.3); Eosinophils % 1.3 % (0-4.4); Hematocrit 39.7 % (39.6-49.0); Hemoglobin 13.3 g/dL (13.6-17.9); Lymphocytes % 20.6 % (15.3-44.8); MCH 32.1 pg (27.0-35.0); MCHC 33.4 g/dL (32.0-36.0); MCV 96.1 fL (80-100); MPV 8.7 fL (7.6-11.3); Monocytes % 12.4 % (3.3-12.3); Neutrophils % 64.8 % (41.7-73.7); Nucleated RBC Absolute Count 0.1 (0-0); Nucleated Red Blood Cells % 0.7 % (0-0); Platelets 270 thou/uL (152-406); RBC Red Blood Cell Count 4.14 M/uL (4.33-5.43); Red Cell Distribution Width 12.9 % (12.1-15.2)
[2023-12-23 05:37] LABS: Albumin 2.9 g/dL (3.4-5.0); Albumin/Globulin Ratio 0.8 (1.1-1.8); Bilirubin Total 0.6 mg/dL (0.2-1.0); Globulin 3.5 g/dL (2.3-3.5); Magnesium 1.4 mg/dL (1.6-2.4); Protein, Total 6.4 g/dL (6.4-8.2)
--- NOTE | 2023-12-23 11:06 | P.PN ---
Date of Service: 12/23/23 Subjective: ~5 episodes of diarrhea since yesterday afternoon. less volume better control of urination urine still dark, but more transparent hgb stable no new/worsening drinking liquids no abd pain ROS: 10 point ROS as noted above, otherwise negative Physical Exam: GEN: Alert, oriented, restless CV: Regular rate and rhythm, no edema Pulm: Nonlabored respirations on room air, clear bilaterally ABD: soft, nontender, nondistended Neuro: Normal speech, normal affect urine yumiko-maroon Problem List: Obstructive ureterolithiasis with right hydroureteronephrosis, s/p right retrograde pyelography and right ureteral stent placement (12/19) diarrhea secondary to c.diff+ Hematuria after stent placement hx of nephroureterolithiasis JULIUS, resolved Complex renal cysts COPD, chronic Hyperlipidemia h/o TURP (20+ years ago) Obstructive ureterolithiasis with right hydroureteronephrosis, s/p right retrograde pyelography and right ureteral stent placement (12/19) Hematuria after stent placement hx of nephroureterolithiasis CT abdomen (12/18): 6mm right ureter calculus with moderate right sided hydro. Mix of simple and complex bilateral renal cysts. Dr. Sim, urology, consulted s/p right retrograde pyelography and right ureteral stent placement (12/19) KUB (12/21): confirmed stable positioning of R ureteric stent will need to follow up with urology as outpatient for ureteroscopy with laser lithotripsy and stent exchange. recommend outpatient CT with contrast or MRI to further evaluate complexity of renal cystic lesions. Hematuria started after stent placement lessening each day hgb stable, monitor 100.8 temperature documented 12/21, but was 97.8 when rechecked orally patient's room was warm and he was under covers suspect 100.8 was not true fever initial sepsis workup was sent since was triggered, but oral temp recheck was normal no evidence of sepsis at this time uirine/blood cultures prelim without growth, no leukocytosis, no further fever/low grade temps diarrhea secondary to c.diff+ 1 large volume episode of diarrhea overnight. No leukocytosis initial concern for c.diff given hospitalization, rocephin had 2 more large BMs later in morning- cdiff + 12/21 continue PO vanc for 10 days total (12/21-12/31) dc empiric rocephin (12/19-12/21) JULIUS, resolved JULIUS resolved after stent placement / IVF continue to monitor renal function continue IV fluids Complex renal cysts CT abdomen noted mix of simple and complex bilateral renal cysts. Dr. Sim recommends CT w/contrast or MRI abdomen as outpatient to further eval degree of complexity once JULIUS resolved COPD, chronic confirm home meds, restart as appropriate Hyperlipidemia continue home statin VTE: hold secondary to arline hematuria Code: DNR Dispo: Home, ~ 48hrs pending hematuria improves, afebrile > 24 hours, cultures cdiff improves Time Spent Managing Pts Care (In Minutes): 43
[2023-12-23] MEDS: TRAZODONE 50 MG TABLET PO SCH (20:28)
[2023-12-24 04:54] LABS: Albumin 2.5 g/dL (3.4-5.0); Albumin/Globulin Ratio 0.8 (1.1-1.8); Anion Gap 8.1 mEq/L (5.0-15.0); Bilirubin Total 0.7 mg/dL (0.2-1.0); Globulin 3.3 g/dL (2.3-3.5); Magnesium 1.6 mg/dL (1.6-2.4); Potassium 3.1 mEq/L (3.5-5.1); Protein, Total 5.8 g/dL (6.4-8.2)
--- NOTE | 2023-12-24 10:29 | P.PN ---
Date of Service: 12/24/23 Subjective: feeling a little better today. 3 episodes of diarrhea today since ~6am. Stool starting to have more form per nursing staff. +less volume hematuria continues, dark maroon/brown in color. Denies trouble urinating afebrile ROS: 10 point ROS as noted above, otherwise negative Physical Exam: GEN: Alert, oriented, restless CV: Regular rate and rhythm, no edema Pulm: Nonlabored respirations on room air, clear bilaterally ABD: soft, nontender, nondistended Neuro: Normal speech, normal affect urine yumiko-maroon Problem List: Obstructive ureterolithiasis with right hydroureteronephrosis, s/p right retrograde pyelography and right ureteral stent placement (12/19) diarrhea secondary to c.diff+ colitis Hematuria after stent placement hx of nephroureterolithiasis JULIUS, resolved Complex renal cysts COPD, chronic Hyperlipidemia h/o TURP (20+ years ago) Obstructive ureterolithiasis with right hydroureteronephrosis, s/p right retrograde pyelography and right ureteral stent placement (12/19) Hematuria after stent placement hx of nephroureterolithiasis CT abdomen (12/18): 6mm right ureter calculus with moderate right sided hydro. Mix of simple and complex bilateral renal cysts. Dr. Sim, urology, consulted s/p right retrograde pyelography and right ureteral stent placement (12/19) KUB (12/21): confirmed stable positioning of R ureteric stent will need to follow up with urology as outpatient for ureteroscopy with laser lithotripsy and stent exchange. recommend outpatient CT with contrast or MRI to further evaluate complexity of renal cystic lesions. Hematuria started after stent placement urine dark maroon/brown in color hgb stable, monitor 100.8 temperature documented 12/21, but was 97.8 when rechecked orally initial sepsis workup was sent since was triggered, but oral temp recheck was normal uirine/blood cultures prelim without growth, no leukocytosis. no evidence of sepsis at this time. no further fever/low grade temps diarrhea secondary to c.diff+ colitis 1 large volume episode of diarrhea overnight. No leukocytosis initial concern for c.diff given hospitalization, rocephin cdiff+ (12/21) colitis continue PO vanc for 10 days total (12/21-12/31) dc empiric rocephin (12/19-12/21) diarrhea improving; more formed and less volume today JULIUS, resolved JULIUS resolved after stent placement / IVF continue to monitor renal function continue IV fluids Complex renal cysts CT abdomen noted mix of simple and complex bilateral renal cysts. Dr. Sim recommends CT w/contrast or MRI abdomen as outpatient to further eval degree of complexity once JULIUS resolved COPD, chronic confirm home meds, restart as appropriate Hyperlipidemia continue home statin VTE: hold secondary to arline hematuria Code: DNR Dispo: Home, ~ 24-48hrs pending hematuria improves, afebrile > 24 hours, cultures cdiff improves Time Spent Managing Pts Care (In Minutes): 45
[2023-12-25 05:00] LABS: Hematocrit 38.6 % (39.6-49.0); Hemoglobin 12.7 g/dL (13.6-17.9); MCH 31.8 pg (27.0-35.0); MCHC 32.8 g/dL (32.0-36.0); MCV 96.8 fL (80-100); MPV 8.9 fL (7.6-11.3); Platelets 267 thou/uL (152-406); RBC Red Blood Cell Count 3.99 M/uL (4.33-5.43); Red Cell Distribution Width 13.1 % (12.1-15.2)
[2023-12-25 05:16] LABS: Anion Gap 8.4 mEq/L (5.0-15.0); Magnesium 1.6 mg/dL (1.6-2.4); Potassium 3.4 mEq/L (3.5-5.1)
--- NOTE | 2023-12-25 12:06 | P.PN ---
Date of Service: 12/25/23 Subjective: hematuria continues, urine dark maroon/tea in color ~950ml UOP overnight diarrhea improving; less frequent and volume afebrile ROS: 10 point ROS as noted above, otherwise negative Physical Exam: GEN: Alert, oriented CV: Regular rate and rhythm, no edema Pulm: Nonlabored respirations on room air, clear bilaterally ABD: soft, nontender, nondistended Neuro: Normal speech, normal affect urine dark maroon/tea in color Problem List: Obstructive ureterolithiasis with right hydroureteronephrosis, s/p right retrograde pyelography and right ureteral stent placement (12/19) diarrhea secondary to c.diff+ colitis Hematuria after stent placement hx of nephroureterolithiasis JULIUS, resolved Complex renal cysts COPD, chronic Hyperlipidemia h/o TURP (20+ years ago) Obstructive ureterolithiasis with right hydroureteronephrosis, s/p right retrograde pyelography and right ureteral stent placement (12/19) Hematuria after stent placement hx of nephroureterolithiasis CT abdomen (12/18): 6mm right ureter calculus with moderate right sided hydro. Mix of simple and complex bilateral renal cysts. Dr. Sim, urology, consulted s/p right retrograde pyelography and right ureteral stent placement (12/19) KUB (12/21): confirmed stable positioning of R ureteric stent f/u with urology for ureteroscopy with laser lithotripsy and stent exchange. recommend outpatient CT with contrast or MRI to further evaluate complexity of renal cystic lesions. Hematuria started after stent placement urine dark maroon/tea in color hgb stable 12/24 - pt reports drinking ~1L of cranberry juice/day, suspect this is con tributing to urine color. 100.8 temperature documented 12/21, but was 97.8 when rechecked orally initial sepsis workup was sent since was triggered, but oral temp recheck was normal uirine/blood cultures prelim without growth, no leukocytosis. no evidence of sepsis at this time. no further fever/low grade temps diarrhea secondary to c.diff+ colitis 1 large volume episode of diarrhea overnight. No leukocytosis initial concern for c.diff given hospitalization, rocephin cdiff+ (12/21) colitis continue PO vanc for 10 days total (12/21-12/31) dc empiric rocephin (12/19-12/21) diarrhea improving; more formed and less volume today JULIUS, resolved JULIUS resolved after stent placement / IVF continue to monitor renal function continue IV fluids Complex renal cysts CT abdomen noted mix of simple and complex bilateral renal cysts. Dr. Sim recommends CT w/contrast or MRI abdomen as outpatient to further eval degree of complexity once JULIUS resolved COPD, chronic confirm home meds, restart as appropriate Hyperlipidemia continue home statin VTE: hold secondary to arline hematuria Code: DNR Dispo: Home, ~ 24hrs pending hematuria improves, afebrile > 24 hours, cultures cdiff improves Time Spent Managing Pts Care (In Minutes): 37
[2023-12-25 21:12] VITALS: O2SAT 97
[2023-12-26 06:28] LABS: Hematocrit 37.3 % (39.6-49.0); Hemoglobin 12.8 g/dL (13.6-17.9); MCH 32.6 pg (27.0-35.0); MCHC 34.2 g/dL (32.0-36.0); MCV 95.2 fL (80-100); MPV 8.6 fL (7.6-11.3); Platelets 272 thou/uL (152-406); RBC Red Blood Cell Count 3.92 M/uL (4.33-5.43); Red Cell Distribution Width 12.9 % (12.1-15.2)
[2023-12-26 06:43] LABS: Anion Gap 4.4 mEq/L (5.0-15.0); Magnesium 1.9 mg/dL (1.6-2.4); Potassium 3.4 mEq/L (3.5-5.1)
--- NOTE | 2023-12-26 08:18 | P.DS ---
Admission Date: 12/20/23 Discharge Date: 12/26/23 Disposition: ROUTINE DISCHARGE Discharge Condition: GOOD Reason for Admission: kidney stone Consultations: Dr. Sim - Urology Brief History of Present Illness: 83yo M, PMH: hx nephroureterolithiasis, COPD, Hyperlipidemia, hx TURP (20+ yrs ago) Patient presents with complaints of right lower quadrant periumbilical abdominal pain that radiated to his back. Onset 1 day ago. Pain progressively gotten worse. Denies having any fevers or dysuria. Reports pain was mostly anterior abdomen. He did report some nausea. Reports symptoms started early Tuesday morning. Pain progressed and presented to ER. In the ED patient had a CT scan of abdomen pelvis which showed obstructive renal stone. Urology was consulted. The patient reports that he had history of kidney stone 20 years ago. He does have multiple surgeries in the past including history of prostate, hernia as well as eye surgery. He denies having fevers but states he did feel warm with a temperature of 99 degrees. He does report he receives his medications at the [facility] but receives medical care outside of [place]. In the ER urology was contacted recommend to make the patient n.p.o. for evaluation tomorrow Hospital Course: Problem List: Obstructive ureterolithiasis with right hydroureteronephrosis, s/p right retrograde pyelography and right ureteral stent placement (12/19) diarrhea secondary to c.diff+ colitis Hematuria after stent placement, improving hx of nephroureterolithiasis JULIUS, resolved Complex renal cysts COPD, chronic Hyperlipidemia h/o TURP (20+ years ago) Physician discharge instructions: Patient presented with lower abdominal pain and right flank pain secondary to 6mm obstructive right ureter calculus with associated JULIUS, seen on CT imaging. Dr. Sim, Urology, performed cystoscopy with right retrograde pyelography and right ureteral stent placement on 12/19. Post operatively patient developed hematuria, which slowly improved over a few days. Hemoglobin remained stable throughout hospitalization. On day of discharge his urine was a more translucent red. Suspected to be partly affected by drinking 750-1000ml cranberry juice for last few days. Patient will need to follow up with Dr. Sim/urology for definitive management of this stone/stent. Renal function improved overnight after stent placement (Cr: 1.8 on admission and 0.83 on discharge) Post-operatively, he developed watery diarrhea which was found to be secondary to C.diff colitis. Empiric Rocephin was discontinued. He was started on oral vancomycin on 12/21 and had continued improvement. On day of discharge he was having more formed / pasty stool, no longer watery, less volume, and <3-4 x/day Patient is to complete 10 days total of oral vancomycin (end date: 01/01/24). Advised to follow standard contact precautions while on antibiotics to avoid spreading c.diff to other people. Wash hands with soap and water. Use bleach cleaning products on surfaes He was documented to have a temporal temperature of 100.8 on 12/21, however on oral recheck it was 97.8, and he denied having any subjective fever/chills. Sepsis workup was sent out, which resulted all negative (negative cultures and normal lactate). Incidentally seen on CT abdomen: mix of simple and complex bilateral renal cysts. Dr. Sim had recommended CT w/contrast or MRI abdomen as outpatient to further evaluate degree of complexity once JULIUS resolved. Follow up with Dr. Sim for further discussion/planing. Medications: Oral Vancomycin 4 times a day (end date: 01/01/24) Oxybutynin (Ditropan) 5 mg daily Avoid NSAIDS due to increased risk of bleeding for now. If still taking celecoxib, hold for now until you follow up with Dr. Sim as it can contribute to bleeding. Recommend tylenol for pain. Follow up: PCP 3-5 days Urology 1-2 weeks Please call to schedule / confirm appointments Discussed with patient and son - use [facility] for possibly assistance with prescription cost. Physical Exam: GEN: Alert, oriented, NAD HEENT: Normal conjunctiva, sclera anicteric, CV: Regular rate and rhythm, no edema Pulm: Nonlabored respirations on room air, clear bilaterally ABD: soft, nontender, nondistended Integumentary: No rashes Neuro: Normal speech, normal affect Vital Signs/Physical Exam: Temp Pulse Resp BP Pulse Ox 98.3 F 57 18 135/70 96 12/26/23 04:00 12/26/23 04:00 12/26/23 04:00 12/26/23 04:00 12/26/23 04:00 Laboratory Data at Discharge: WBC 6.90 thou/uL (4.3-10.9) 12/26/23 05:50 Hgb 12.8 g/dL (13.6-17.9) L 12/26/23 05:50 Hct 37.3 % (39.6-49.0) L 12/26/23 05:50 Plt Count 272 thou/uL (152-406) 12/26/23 05:50 PT 11.7 SECONDS (9.4-12.5) 12/20/23 12:03 INR 1.05 12/20/23 12:03 Sodium 139 mEq/L (136-145) 12/26/23 05:50 Potassium 3.4 mEq/L (3.5-5.1) L 12/26/23 05:50 BUN 12 mg/dL (7-18) 12/26/23 05:50 Creatinine 0.83 mg/dL (0.70-1.30) 12/26/23 05:50 Glucose 104 mg/dL (74-106) 12/26/23 05:50 Magnesium 1.9 mg/dL (1.6-2.4) 12/26/23 05:50 Total Bilirubin 0.7 mg/dL (0.2-1.0) 12/24/23 04:14 AST 26 U/L (15-37) 12/24/23 04:14 ALT 28 U/L (16-61) 12/24/23 04:14 Alkaline Phosphatase 72 U/L (45-117) 12/24/23 04:14 Lipase 41 U/L (13-75) 12/19/23 20:44 Home Medications: Amlodipine [Norvasc*] 5 mg PO DAILY 12/20/23 Atorvastatin Calcium 40 mg PO BEDTIME 12/20/23 Cholecalciferol (Vitamin D3) [Vitamin D 5,000 IU Cap*] 5,000 unit PO DAILY 12/20/23 Trazodone HCl 100 mg PO BEDTIME 12/20/23 Vancomycin HCl 125 mg PO QID 6 Days #24 cap 12/26/23 oxyBUTYnin chloride [Ditropan Xl*] 5 mg PO DAILY 14 Days #14 tab.sa 12/26/23 New Medications: oxyBUTYnin chloride [Ditropan Xl*] 5 mg PO DAILY 14 Days #14 tab.sa Vancomycin HCl 125 mg PO QID 6 Days #24 cap Physician Discharge Instructions: Physician discharge instructions: Patient presented with lower abdominal pain and right flank pain secondary to 6mm obstructive right ureter calculus with associated JULIUS, seen on CT imaging. Dr. Sim, Urology, performed cystoscopy with right retrograde pyelography and right ureteral stent placement on 12/19. Post operatively patient developed hematuria, which slowly improved over a few days. Hemoglobin remained stable throughout hospitalization. On day of discharge his urine was a more translucent red. Suspected to be partly affected by drinking 750-1000ml cranberry juice for last few days. Patient will need to follow up with Dr. Sim/urology for definitive management of this stone/stent. Renal function improved overnight after stent placement (Cr: 1.8 on admission and 0.83 on discharge) Post-operatively, he developed watery diarrhea which was found to be secondary to C.diff colitis. Empiric Rocephin was discontinued. He was started on oral vancomycin on 12/21 and had continued improvement. On day of discharge he was having more formed / pasty stool, no longer watery, less volume, and <3-4 x/day Patient is to complete 10 days total of oral vancomycin (end date: 01/01/24). Advised to follow standard contact precautions while on antibiotics to avoid spreading c.diff to other people. Wash hands with soap and water. Use bleach cleaning products on surfaes He was documented to have a temporal temperature of 100.8 on 12/21, however on oral recheck it was 97.8, and he denied having any subjective fever/chills. Sepsis workup was sent out, which resulted all negative (negative cultures and normal lactate). Incidentally seen on CT abdomen: mix of simple and complex bilateral renal cysts. Dr. Sim had recommended CT w/contrast or MRI abdomen as outpatient to further evaluate degree of complexity once JULIUS resolved. Follow up with Dr. Sim for further discussion/planing. Medications: Oral Vancomycin 4 times a day (end date: 01/01/24) Oxybutynin (Ditropan) 5 mg daily Avoid NSAIDS due to increased risk of bleeding for now. If still taking celecoxib, hold for now until you follow up with Dr. Sim as it can contribute to bleeding. Recommend tylenol for pain. Follow up: PCP 3-5 days Urology 1-2 weeks Please call to schedule / confirm appointments Discussed with patient and son - use [facility] for possibly assistance with prescription cost. Instructions per Dr. Sim: You have a new right ureteral stent that has been placed. This is of the foreign body, which I discussed with you prior to the surgery, which allows the kidney to drain its urine past the obstructing stone into your bladder. As discussed, the stent must be removed within 6 months maximum to prevent complications of encrustation and infection. As a result, it is critical that you establish follow-up with me in my office to discuss the next steps in management of your current obstructing kidney stone given your history of kidney stones in the past. We also need to do some further evaluation of some cystic lesions seen on your kidney. We will discuss this further as well on follow-up. Notify me if you develop any fever (temperature greater than 100.4 Fahrenheit), intractable nausea or vomiting, increasing pain not controlled by pain medications, or other unusual signs or symptoms. It is common to see some blood in the urine following your procedure. It will be light pink/cranberry colored initially, and then it will become dark or tea colored, when the blood oxidized is in the urine, before it finally clears up. It is only a concern if you note bright red and thick/nontranslucent (not see-through) blood in the urine that appears like tomato juice. Notify me if you have any difficulty urinating, or if you feel the need to push or strain to urinate, as this may be a problem. You may purchase [id number] Azo (Pyridium) if you have burning with urination. Please note, it will turn your urine bright orange. If you have significant bothersome urinary frequency, persistent urge to urinate, or pain in your flank area when you urinate associated with the stent, notify me via my office, and I can send an additional prescription for a medication that will help with this called oxybutynin/Ditropan. Please contact my office to arrange follow-up in the next several weeks. [phone]. All the best Issac Sim MD, PhD [employer] of urology [facility] [place] [address] Diet: Low sodium Activity: Ad dania Followup: NONE,NONE [Primary Care Provider] - [facility] [UN[facility]] - Issac Sim [ACTIVE - CAN ADMIT] - Time spent managing pt's care (in minutes): 45
[2023-12-26 09:00] VITALS: BP 158/70; TEMP 97.9
== END 2023-12-26 10:37 | disposition home or self-care (01) | DRG 660 ==
LOC: ER 18:33 → ERHOLD 12-20 00:16 → 2ND 12-20 11:37
PROVIDERS: ADMIT Internal Medicine; ATTEND Hospitalist
PROC: 0T9B70Z Drainage of Bladder with Drainage Device, Via Natural or Artificial Opening (ICD-10-PCS; 2023-12-20)
PROC: BT1D1ZZ Fluoroscopy of Right Kidney, Ureter and Bladder using Low Osmolar Contrast (ICD-10-PCS; 2023-12-20)
PROC: 0T768DZ Dilation of Right Ureter with Intraluminal Device, Via Natural or Artificial Opening Endoscopic (ICD-10-PCS; principal; 2023-12-20 12:00)
DX: N13.2 Hydronephrosis with renal and ureteral calculous obstruction (principal); A04.72 Enterocolitis due to Clostridium difficile, not specified as recurrent; N99.820 Postprocedural hemorrhage of a genitourinary system organ or structure following a genitourinary system procedure; N17.9 Acute kidney failure, unspecified; I10 Essential (primary) hypertension; E78.00 Pure hypercholesterolemia, unspecified; N28.1 Cyst of kidney, acquired; D72.829 Elevated white blood cell count, unspecified; J44.9 Chronic obstructive pulmonary disease, unspecified; R31.9 Hematuria, unspecified; Z66 Do not resuscitate; Z87.891 Personal history of nicotine dependence; Z79.899 Other long term (current) drug therapy; Y84.8 Other medical procedures as the cause of abnormal reaction of the patient, or of later complication, without mention of misadventure at the time of the procedure
CPT/HCPCS: 36415; 51610; 71045; 74018; 74176; 74450; 80048; 80053; 81001; 81015; 82947; 83605; 83690; 83735; 85025; 85027; 85610; 86140; 87040; 87086; 87088; 87324; 93005; 96361; 96374; 96375; 99285; J0360; J0696; J2001; J2250; J2405; J2704; J3010; J7030; J7120

== ENCOUNTER 2024-01-09 13:14 | Emergency (ER) | payer OTHER, MEDICARE ==
[2024-01-09] MEDS ORDERED: NA CHLORIDE 0.9% 1,000 ML ONE (14:27)
[2024-01-09 14:32] LABS: Absolute Basophils 0.1 K/uL (0-0.5); Absolute Eosinophils 0.1 K/uL (0-0.5); Absolute Lymphocytes (CBC) 1.9 K/uL (0.7-4.9); Absolute Monocytes 0.7 K/uL (0.1-1.3); Absolute Neutrophil 5.2 K/uL (1.8-8.0); Basophils % 1.1 % (0-1.3); Eosinophils % 1.8 % (0-4.4); Hematocrit 46.4 % (39.6-49.0); Hemoglobin 14.8 g/dL (13.6-17.9); Lymphocytes % 23.3 % (15.3-44.8); MCH 31.1 pg (27.0-35.0); MCHC 31.9 g/dL (32.0-36.0); MCV 97.3 fL (80-100); MPV 7.8 fL (7.6-11.3); Monocytes % 8.2 % (3.3-12.3); Neutrophils % 65.6 % (41.7-73.7); Nucleated Red Blood Cells % 0.1 % (0-0); Platelets 405 thou/uL (152-406); RBC Red Blood Cell Count 4.77 M/uL (4.33-5.43); Red Cell Distribution Width 13.3 % (12.1-15.2)
[2024-01-09 14:47] LABS: Albumin 3.4 g/dL (3.4-5.0); Albumin/Globulin Ratio 0.9 (1.1-1.8); Anion Gap 9.1 mEq/L (5.0-15.0); Bilirubin Total 0.6 mg/dL (0.2-1.0); Potassium 4.1 mEq/L (3.5-5.1); Protein, Total 7.4 g/dL (6.4-8.2)
--- NOTE | 2024-01-09 15:22 | RAD REPORT ---
EXAM DESCRIPTION: CT - Abdomen Pelvis W Contrast - 01/09/2024 3:01 pm CLINICAL HISTORY: diarrhea;Abd pain COMPARISON: Abdomen 1 View (KUB) dated 12/22/2023; Abdomen Pelvis Wo Contrast dated 12/19/2023 TECHNIQUE: Thin cut axial CT imaging of the abdomen and pelvis was performed following intravenous a dministration of 100 mL Isovue 300. Multiplanar reformats were generated and reviewed. All CT scans are performed using dose optimization technique as appropriate and may include automated exposure control or mA/KV adjustment according to patient size. FINDINGS: No suspicious findings in the lung bases. The liver, spleen, and pancreas show no suspicious findings. Gallbladder and biliary tree are also wi thout suspicious finding. Symmetric renal function is seen with no suspicious renal mass. A right ureteral stent has been place d. 6 mm right ureteral calculus has been displaced superiorly common no present at the pelviureteric junction, see axial image 35. The degree of hydronephrosis has improved. Bilateral renal cortical exo phytic fluid density cysts are stable. No dilated bowel loops or bowel wall thickening. No free air, free fluid or inflammatory stranding. N o hernia, mass or bulky lymphadenopathy. At least moderate prostatomegaly. The urinary bladder is wit hout significant finding. No suspicious bony findings. IMPRESSION: No acute intra-abdominal process. Satisfactory positioning of right urethral stent. 6 mm calculus has been displaced superiorly and or resides at the right pelviureteric junction.
--- NOTE | 2024-01-09 16:41 | ER ---
Nurse's Notes [facility] Name: Martín Bee Age: 84 yrs Sex: Male : 1940 Arrival Date: 01/09/2024 Time: 13:14 Bed 2 Private MD: Diagnosis: Enterocolitis due to Clostridium difficile, recurrent Presentation: 01/08 13:36 Chief complaint: Patient states: diarrhea x 4 weeks, CDIFF from hospital. Ran out of tm6 medication prescribed for CDIFF. Coronavirus screen: Vaccine status: Patient reports being unvaccinated. Ebola Screen: Patient negative for fever greater than or equal to 101.5 degrees Fahrenheit, and additional compatible Ebola Virus Disease symptoms Patient denies exposure to infectious person. Patient denies travel to an Ebola-affected area in the 21 days before illness onset. No symptoms or risks identified at this time. Initial Sepsis Screen: Does the patient meet any 2 criteria? No. Patient's initial sepsis screen is negative. Does the patient have a suspected source of infection? No. Patient's initial sepsis screen is negative. Risk Assessment: Do you want to hurt yourself or someone else? Patient reports no desire to harm self or others. Onset of symptoms was December 12, 2023. 13:36 Method Of Arrival: Ambulatory tm6 13:36 Acuity: CHANDLER 3 tm6 13:36 Coronavirus screen: Vaccine status: Patient reports receiving the 2nd dose of the covid tm6 vaccine. Triage Assessment: 13:39 General: Appears uncomfortable, Behavior is calm, cooperative. Pain: Denies pain. EENT: tm6 No signs and/or symptoms were reported regarding the EENT system. Neuro: Level of Consciousness is awake, alert, obeys commands, Oriented to person, place, time, situation. Cardiovascular: Patient's skin is warm and dry. Respiratory: Airway is patent Respiratory effort is even, unlabored, Respiratory pattern is regular, symmetrical. GI: Abdomen is flat, non-distended, Reports diarrhea. : No signs and/or symptoms were reported regarding the genitourinary system. Derm: No signs and/or symptoms reported regarding the dermatologic system. Musculoskeletal: No signs and/or symptoms reported regarding the musculoskeletal system. Historical: - Allergies: 13:39 No Known Allergies; tm6 - PMHx: 13:39 Hypercholesterolemia; Hypertensive disorder; Kidney stone; Pancreatitis; tm6 - PSHx: 13:39 stent in ureter (Pancreatitis); tm6 - Immunization history:: Client reports receiving the 2nd dose of the Covid vaccine. - Infectious Disease History:: CDIFF, . - Social history:: Smoking status: Patient/guardian denies using tobacco, the patient reports quitting approximately 60 years ago, Patient/guardian denies using alcohol. Screenin:39 [facility] ED Fall Risk Assessment (Adult) History of falling in the last 3 months, dd2 including since admission No falls in past 3 months (0 pts) Confusion or Disorientation No (0 pts) Intoxicated or Sedated No (0 pts) Impaired Gait Yes (1 pt) Mobility Assist Device Used No (0 pt) Altered Elimination No (0 pt) Score/Fall Risk Level 0 - 2 = Low Risk Oriented to surroundings, Maintained a safe environment, Hourly rounding (assess needs \T\ fall precautionary measures) done. Abuse screen: Denies threats or abuse. Nutritional screening: No deficits noted. Tuberculosis screening: No symptoms or risk factors identified. Assessment: 14:39 General: Appears ill, Behavior is calm, cooperative. Pain: Denies pain. Neuro: No dd2 deficits noted. Cardiovascular: No deficits noted. Respiratory: No deficits noted. GI: Bowel sounds present X 4 quads. Abd is soft and non tender Reports diarrhea, intolerance of food. : No deficits noted. EENT: No deficits noted. Derm: No deficits noted. Musculoskeletal: No deficits noted. Vital Signs: 13:36 BP 177 / 84; Pulse 77; Resp 20; Temp 98(O); Pulse Ox 99% on R/A; Weight 73.94 kg; tm6 Height 6 ft. 0 in. ; Pain 0/10; 14:43 BP 167 / 77; Pulse 73; Resp 15; Pulse Ox 100% ; dd2 16:18 BP 183 / 67; Pulse 83; Resp 15; Pulse Ox 98% ; dd2 13:36 Body Mass Index 22.11 (73.94 kg, 182.88 cm) tm6 13:36 Pain Scale: Adult tm6 ED Course: 13:15 Patient arrived in ED. ra3 13:26 Shabana Barrera PA-C is PHCP. sb4 13:27 Tito Lees DO is Attending Physician. sb4 13:38 Triage completed. tm6 13:39 Arm band placed on right wrist. tm6 13:49 LUCIA SCHWAB, RN is Primary Nurse. dd2 14:25 CBC with Diff Sent. dd2 14:25 CMP Sent. dd2 14:25 Lipase Sent. dd2 14:39 Patient has correct armband on for positive identification. Bed in low position. Call dd2 light in reach. Side rails up X 1. Provided Education on: call light, medication, procedures. Client placed on continuous cardiac and pulse oximetry monitoring. NIBP monitoring applied. Door closed. Noise minimized. Warm blanket given. Contact isolation initiated. 14:39 No provider procedures requiring assistance completed. Initial lab(s) drawn, by me, dd2 sent to lab. Inserted saline lock: 20 gauge in right antecubital area, using aseptic technique. Blood collected. Flushed with 10 mL NS. 15:03 CT Abd/Pelvis - IV Contrast Only In Process Unspecified. EDMS 16:58 IV discontinued, intact, bleeding controlled, No redness/swelling at site. Pressure dd2 dressing applied. Administered Medications: 14:38 Drug: NS 0.9% IV 1000 ml IV at 1 bolus Per protocol; 1000 mL bolus Route: IV; Rate: 1 dd2 bolus; Site: right antecubital; 14:53 Follow up: Response: No adverse reaction dd2 15:45 Follow up: Response: No adverse reaction; IV Status: Completed infusion; IV Intake: dd2 1000ml Medication: 14:39 VIS not applicable for this client. dd2 Intake: 15:45 IV: 1000ml; Total: 1000ml. dd2 Outcome: 16:41 Discharge ordered by MD. sb4 16:58 Discharged to home via wheelchair, dd2 16:58 Condition: stable 16:58 Discharge instructions given to patient, Instructed on discharge instructions, follow up and referral plans. medication usage, Demonstrated understanding of instructions, follow-up care, medications, Prescriptions given X 1, 16:59 Patient left the ED. dd2 Signatures: Dispatcher [employer] Shabana Lyons PA-C PA-C sb4 Sudheer Mina RN RN tm6 Viviane Ríos ra3 LUCIA SCHWAB, RN RN dd2
--- NOTE | 2024-01-09 16:41 | EDPHYS ---
Physician Documentation [facility] Name: Martín Bee Age: 84 yrs Sex: Male : 1940 Arrival Date: 01/09/2024 Time: 13:14 Bed 2 Private MD: ED Physician Tito Lees HPI: 01/08 14:13 This 84 yrs old Male presents to ER via Ambulatory with complaints of Diarrhea. sb4 14:13 The patient presents to the emergency department with diarrhea, 6 times today. Onset: sb4 The symptoms/episode began/occurred 1 month(s) ago. Possible causes: cdiff. The symptoms are aggravated by nothing. The symptoms are alleviated by nothing. Associated signs and symptoms: Pertinent negatives: abdominal pain, constipation, fever, GI bleeding. 14:25 admitted 3 weeks ago for infected kidney stone, developed cdiff, was discharged on oral sb4 vancomycin. states that the watery consistency of the diarrhea improved but the frequency has not. Historical: - Allergies: 13:39 No Known Allergies; tm6 - PMHx: 13:39 Hypercholesterolemia; Hypertensive disorder; Kidney stone; Pancreatitis; tm6 - PSHx: 13:39 stent in ureter (Pancreatitis); tm6 - Immunization history:: Client reports receiving the 2nd dose of the Covid vaccine. - Infectious Disease History:: CDIFF, . - Social history:: Smoking status: Patient/guardian denies using tobacco, the patient reports quitting approximately 60 years ago, Patient/guardian denies using alcohol. ROS: 14:14 Constitutional: Negative for fever, chills, and weight loss, sb4 14:14 Abdomen/GI: Positive for diarrhea, 14:14 All other systems are negative, Exam: 14:14 Constitutional: This is a well developed, well nourished patient who is awake, alert, sb4 and in no acute distress. Head/Face: Normocephalic, atraumatic. Eyes: Extra-ocular motions intact. Periorbital areas with no swelling, redness, or edema. Cardiovascular: Regular rate and rhythm with a normal S1 and S2. Respiratory: Lungs have equal breath sounds bilaterally, clear to auscultation and percussion. No rales, rhonchi or wheezes noted. No increased work of breathing, no retractions or nasal flaring. Abdomen/GI: Soft, non-tender, no distension. Skin: Warm, dry with normal turgor. Normal color with no rashes, no lesions, and no evidence of cellulitis. Vital Signs: 13:36 BP 177 / 84; Pulse 77; Resp 20; Temp 98(O); Pulse Ox 99% on R/A; Weight 73.94 kg; tm6 Height 6 ft. 0 in. ; Pain 0/10; 14:43 BP 167 / 77; Pulse 73; Resp 15; Pulse Ox 100% ; dd2 16:18 BP 183 / 67; Pulse 83; Resp 15; Pulse Ox 98% ; dd2 13:36 Body Mass Index 22.11 (73.94 kg, 182.88 cm) tm6 13:36 Pain Scale: Adult tm6 MDM: 13:40 Patient medically screened. sb4 16:40 Data reviewed: vital signs, nurses notes, lab test result(s), radiologic studies, and sb4 as a result, I will discharge patient. Counseling: I had a detailed discussion with the patient and/or guardian regarding the historical points, exam findings, and any diagnostic results supporting the discharge/admit diagnosis, lab results, radiology results, the need for outpatient follow up, for definitive care, to return to the emergency department if symptoms worsen or persist or if there are any questions or concerns that arise at home. 01/08 14:04 Order name: CBC with Diff; Complete Time: 14:34 sb4 01/08 14:04 Order name: CMP; Complete Time: 14:48 sb4 01/08 14:04 Order name: Lipase; Complete Time: 14:48 sb4 01/08 14:48 Order name: CT Abd/Pelvis - IV Contrast Only; Complete Time: 15:24 sb4 01/08 14:04 Order name: IV Saline Lock; Complete Time: 14:26 sb4 01/08 14:04 Order name: Labs collected and sent; Complete Time: 14:45 sb4 Administered Medications: 14:38 Drug: NS 0.9% IV 1000 ml IV at 1 bolus Per protocol; 1000 mL bolus Route: IV; Rate: 1 dd2 bolus; Site: right antecubital; 14:53 Follow up: Response: No adverse reaction dd2 15:45 Follow up: Response: No adverse reaction; IV Status: Completed infusion; IV Intake: dd2 1000ml Disposition: 14:48 I was immediately available on-site in the Emergency Department for consultation in the ms3 care of the patient. Disposition Summary: 01/09/24 16:41 Discharge Ordered Notes: Location: Home sb4 Problem: an ongoing problem sb4 Symptoms: have improved sb4 Condition: Stable sb4 Diagnosis - Enterocolitis due to Clostridium difficile, recurrent sb4 Followup: sb4 - With: Emergency Department - When: As needed - Reason: Worsening of condition Discharge Instructions: - Discharge Summary Sheet sb4 - Clostridioides Difficile Infection, [id number] sb4 Forms: - Antibiotic Education sb4 - Patient Portal Instructions sb4 - Leadership Thank You Letter sb4 Prescriptions: - vancomycin 125 mg Oral capsule - take 1 capsule ORAL route 4 times per day for 10 days; 40 capsule; Refills: 0, sb4 Product Selection Permitted Signatures: Dispatcher [employer] EDTito Feldman DO DO ms3 Shabana Barrera PA-C PA-C sb4 Sudheer Mina RN RN tm6 LUCIA SCHWAB RN RN dd2 Corrections: (The following items were deleted from the chart) 14:05 14:05 C.difficile GDH Ag \T\ Toxin AB+LAB.BRZ ordered. EDMS EDMS 14:05 14:05 CBC+H.LAB.BRZ ordered. EDMS EDMS 14:05 14:05 COMPREHENSIVE METABOLIC PANEL+C.LAB.BRZ ordered. EDMS EDMS 14:05 14:05 LIPASE+C.LAB.BRZ ordered. EDMS EDMS 14:05 14:05 Fecal Leukocyte Stain+BA.LAB.BRZ ordered. EDMS EDMS 14:05 14:05 Ova and Parasites+MR.LAB.BRZ ordered. EDMS EDMS 14:05 14:05 Rotavirus Antigen+BA.LAB.BRZ ordered. EDMS EDMS 14:05 14:05 Stool Culture+BA.LAB.BRZ ordered. EDMS EDMS
[2024-01-09 17:25] VITALS: TEMP 98
[2024-01-09 17:28] VITALS: BP 183/67; O2SAT 98
== END 2024-01-09 16:59 | disposition home or self-care (01) ==
LOC: ER 13:14
DX: A04.71 Enterocolitis due to Clostridium difficile, recurrent (principal); Z87.442 Personal history of urinary calculi; Z96.0 Presence of urogenital implants
CPT/HCPCS: 85025; 36415; 83690; 80053; 74177; Q9967; J7030

== ENCOUNTER 2024-03-19 16:16 | Emergency (ER) | payer OTHER, MEDICARE ==
[2024-03-19] MEDS ORDERED: MORPHINE 4 MG/ML SYR ONE ×2 (17:03→19:02)
[2024-03-19 17:16] LABS: Absolute Lymphocytes (CBC) 0.6 K/uL (0.7-4.9); Absolute Monocytes 0.2 K/uL (0.1-1.3); Absolute Neutrophil 9.5 K/uL (1.8-8.0); Basophils % 0.3 % (0-1.3); Hematocrit 42.5 % (39.6-49.0); Lymphocytes % 6.2 % (15.3-44.8); MCH 31.5 pg (27.0-35.0); MCV 95.3 fL (80-100); MPV 8.2 fL (7.6-11.3); Monocytes % 1.5 % (3.3-12.3); Nucleated Red Blood Cells % 0.3 % (0-0); Platelets 316 thou/uL (152-406); RBC Red Blood Cell Count 4.46 M/uL (4.33-5.43); Red Cell Distribution Width 12.9 % (12.1-15.2)
[2024-03-19 17:32] LABS: Albumin 3.6 g/dL (3.4-5.0); Albumin/Globulin Ratio 0.9 (1.1-1.8); Anion Gap 10.4 mEq/L (5.0-15.0); Bilirubin Total 0.4 mg/dL (0.2-1.0); Globulin 4.2 g/dL (2.3-3.5); Potassium 4.4 mEq/L (3.5-5.1); Protein, Total 7.8 g/dL (6.4-8.2)
[2024-03-19 17:33] LABS: Sqamous Epithelial None Seen /HPF (None Seen); Urine Bacteria None Seen /HPF (<20); Urine Culture Reflex Order REFLEXED; Urine Micro Reflex YN NO BILL MICROSCOPIC; Urine RBC >50 /HPF (None Seen); Urine WBC >50 /HPF (<5)
--- NOTE | 2024-03-19 18:28 | RAD REPORT ---
EXAMINATION: CT ABDOMEN AND PELVIS WITHOUT CONTRAST CLINICAL INDICATION: Abdominal pain TECHNIQUE: CT abdomen and pelvis was performed, as per department protocol. IV contrast and oral was not administered.Axial, sagittal and coronal reconstructions were obtained. One or more of the following dose reduction techniques were used: Automated exposure control, adjustment of the mA and/o r kV according to the patient size, and/or iterative reconstruction. Unless otherwise specified, incidental findings do not require dedicated imaging follow-up. [id number]. COMPARISON: December 2023 FINDINGS: The lack of intravenous and oral contrast limits evaluation of solid organs, vessels and bowel. Right ureteral stent in place. Air is present within the right renal pelvis and calyces. Increased de nsity is also doesn't within right renal pelvis.. Air is present within the bladder. Fluid is present within the anterior and posterior right pararenal spaces. Mild right hydronephrosis is present. 3 mm calculus is present within the bladder. Prostate gland moderately to markedly enlarged. Liver, spleen, pancreas and adrenals grossly normal. Several simple and proteinaceous left renal cysts. Small amount of ascites within the pelvis. Small hiatal hernia IMPRESSION: Right ureteral stent with mild right hydronephrosis. Air within the bladder, right renal pelvis and calyces. This may be a normal finding status post rece nt instrumentation. Infection can also result in this appearance. Fluid within the anterior and posterior right pararenal spaces. Increased density within the right renal pelvis may represent blood.. Another consideration is that i t represents contrast from a right retrograde pyelogram.
--- NOTE | 2024-03-19 18:55 | EDPHYS ---
Physician Documentation [facility] Name: Martín Bee Age: 84 yrs Sex: Male : 1940 Arrival Date: 03/19/2024 Time: 16:16 Bed 18 Private MD: ED Physician Ceferino Zamarripa HPI: 03/19 17:23 This 84 yrs old Male presents to ER via Wheelchair with complaints of Post Surgical ms3 Pain - 03/19/24. 17:23 84-year-old male with past medical history of hypercholesterolemia, hypertension, ms3 kidney stones, pancreatitis presents to the emergency department for 03/01 right flank pain radiating to his lower abdomen. Patient states he had a kidney stone in December and a stent was placed at that time. While in the hospital patient contracted C. difficile and the stent was not removed. Patient states he went to [place] and had his stent removed and the stone broken. Patient had a new stent placed today.. Historical: - Allergies: 16:33 No Known Allergies; cm10 - PMHx: 16:33 Hypercholesterolemia; Hypertensive disorder; Kidney stone; Pancreatitis; cm10 - PSHx: 16:33 stent in ureter (at); cm10 - Immunization history:: Adult Immunizations up to date. - Infectious Disease History:: Denies. - Social history:: Smoking status: unknown. ROS: 17:23 Constitutional: Negative for fever, and chills. Cardiovascular: Negative for chest ms3 pain, and palpitations. Respiratory: Negative for shortness of breath, cough, wheezing, and pleuritic chest pain, Abdomen/GI: Negative for abdominal pain, nausea, vomiting, diarrhea, and constipation, 17:23 Skin: Negative for injury, rash, and discoloration, 17:23 Back: Positive for flank pain, on the right, Exam: 17:23 Constitutional: This is a well developed, well nourished patient who is awake, alert, ms3 and in no acute distress. Chest/axilla: Normal chest wall appearance and motion. Nontender with no deformity. Cardiovascular: Regular rate and rhythm with a normal S1 and S2. No gallops, murmurs, or rubs. Normal PMI, no JVD. No pulse deficits. Respiratory: Lungs have equal breath sounds bilaterally, clear to auscultation and percussion. No rales, rhonchi or wheezes noted. No increased work of breathing, no retractions or nasal flaring. Abdomen/GI: Soft, non-tender, with normal bowel sounds. No distension or tympany. No guarding or rebound. No evidence of tenderness throughout. Skin: Warm, dry with normal turgor. Normal color with no rashes, no lesions, and no evidence of cellulitis. MS/ Extremity: Pulses equal, no cyanosis. Neurovascular intact. Full, normal range of motion. Vital Signs: 16:32 BP 155 / 87; Pulse 71; Resp 22; Temp 97.1(TE); Pulse Ox 100% ; Weight 73.03 kg; Height cm10 6 ft. 0 in. ; Pain 10/10; 17:42 BP 171 / 82; Pulse 76; Resp 16; Pulse Ox 100% on R/A; db 18:30 BP 161 / 74; Pulse 76; Resp 20; Pulse Ox 99% on R/A; db 20:19 BP 170 / 85; Pulse 77; Resp 16; Pulse Ox 98% on R/A; jb4 16:32 Body Mass Index 21.84 (73.03 kg, 182.88 cm) cm10 16:32 Pain Scale: Adult cm10 MDM: 16:42 Medical Screening Exam initiated ms3 17:23 Differential diagnosis: nephrolithiasis, Kidney laceration vs Ruptured ureter vs ms3 Hydronephrosis vs Ureterolithiasis. 18:53 Data reviewed: vital signs, nurses notes, lab test result(s), radiologic studies. ED sp3 course: Patient signed out to me by Dr. Lees. 84-year-old male with procedure today with urology for stent replacement and lithotripsy now presents with flank pain. CT scan demonstrated stent in appropriate placement and laboratory values demonstrate no significant abnormality. We will medicate patient he will follow-up with urology in the morning.. 03/19 16:43 Order name: CBC with Diff; Complete Time: 17:23 ms3 03/19 16:43 Order name: CMP; Complete Time: 17:34 ms3 03/19 17:18 Order name: Urine Microscopic Only; Complete Time: 17:34 EDMS 03/19 17:36 Order name: Urine Culture EDMS 03/19 16:43 Order name: CT Abd/Pelvis - Without Contrast; Complete Time: 18:36 ms3 03/19 16:43 Order name: IV Saline Lock; Complete Time: 17:06 ms3 03/19 16:43 Order name: Labs collected and sent; Complete Time: 17:06 ms3 03/19 19:11 Order name: Lozada; Complete Time: 19:39 sp3 Administered Medications: 17:09 Drug: morphine IVP or IV 4 mg IVP once over 4 mins Route: IVP; Infused Over: 4 mins; db Site: right antecubital; 17:40 Follow up: Response: No adverse reaction; Pain is decreased db 19:02 Drug: morphine IVP or IV 4 mg IVP once over 4 mins Route: IVP; Infused Over: 4 mins; db Site: right antecubital; 20:21 Follow up: Response: No adverse reaction; Marked relief of symptoms; Pain is decreased; jb4 RASS: Alert and Calm (0) Disposition Summary: 03/19/24 18:54 Discharge Ordered Notes: Location: Home sp3 Condition: Stable sp3 Diagnosis - Flank pain sp3 Followup: sp3 - With: Private Physician - When: Upon discharge from the Emergency Department - Reason: Continuance of care Discharge Instructions: - Discharge Summary Sheet sp3 - Ureteral Stent Implantation, Care After sp3 Forms: - Medication Reconciliation Form sp3 - Antibiotic Education sp3 - Prescription Opioid Use sp3 - Patient Portal Instructions sp3 - Leadership Thank You Letter sp3 Signatures: Dispatcher [employer] EDTito Feldman DO DO ms3 Ceferino Zamarripa MD MD sp3 Mara Rajan RN RN db Karen Ware RN RN cm10 Kris Griffin RN jb4 Corrections: (The following items were deleted from the chart) 16:44 16:44 Abdomen Pelvis Wo Con+CT.RAD.BRZ ordered. EDMS EDMS 17:18 16:44 Urinalysis+U.LAB.BRZ ordered. EDMS EDMS
--- NOTE | 2024-03-19 18:55 | ER ---
Nurse's Notes [facility] Name: Martín Bee Age: 84 yrs Sex: Male : 1940 Arrival Date: 03/19/2024 Time: 16:16 Bed 18 Private MD: Diagnosis: Flank pain Presentation: 03/19 16:32 Chief complaint: Patient states: Right flank pain onset 1400. Pt [facility]. Coronavirus screen: Client denies travel out of the [place] in the last 14 days. Ebola Screen: Patient denies travel to an Ebola-affected area in the 21 days before illness onset. No symptoms or risks identified at this time. Initial Sepsis Screen: Does the patient meet any 2 criteria? RR > 20 per min. Does the patient have a suspected source of infection? No. Patient's initial sepsis screen is negative. Risk Assessment: Do you want to hurt yourself or someone else? Patient reports no desire to harm self or others. Onset of symptoms was March 19, 2024. 16:32 Method Of Arrival: Wheelchair cm10 16:32 Acuity: CHANDLER 3 cm10 Triage Assessment: 16:34 General: Appears in no apparent distress. uncomfortable, Behavior is calm, cooperative. cm10 Neuro: No deficits noted. Level of Consciousness is awake, alert, obeys commands, Oriented to person, place, time, situation, Appropriate for age. Historical: - Allergies: 16:33 No Known Allergies; cm10 - PMHx: 16:33 Hypercholesterolemia; Hypertensive disorder; Kidney stone; Pancreatitis; cm10 - PSHx: 16:33 stent in ureter (at); cm10 - Immunization history:: Adult Immunizations up to date. - Infectious Disease History:: Denies. - Social history:: Smoking status: unknown. Screenin:35 [facility] ED Fall Risk Assessment (Adult) History of falling in the last 3 months, db including since admission No falls in past 3 months (0 pts) Confusion or Disorientation No (0 pts) Intoxicated or Sedated No (0 pts) Impaired Gait No (0 pts) Mobility Assist Device Used No (0 pt) Altered Elimination No (0 pt) Score/Fall Risk Level 0 - 2 = Low Risk Oriented to surroundings, Maintained a safe environment. Abuse screen: Denies threats or abuse. Denies injuries from another. Nutritional screening: No deficits noted. Tuberculosis screening: No symptoms or risk factors identified. Assessment: 17:35 Reassessment: Patient appears in no apparent distress at this time. Patient and/or db family updated on plan of care and expected duration. Pain level reassessed. Patient is alert, oriented x 3, equal unlabored respirations, skin warm/dry/pink. General: Appears in no apparent distress. comfortable, Behavior is calm, cooperative. Pain: Complains of pain in back. Neuro: Level of Consciousness is awake, alert, obeys commands, Oriented to person, place, time, situation. Respiratory: Airway is patent Respiratory effort is even, unlabored, Respiratory pattern is regular, symmetrical. : Reports pain flank(s), in lower back. 18:30 Reassessment: Patient appears in no apparent distress at this time. Patient and/or db family updated on plan of care and expected duration. Pain level reassessed. Patient is alert, oriented x 3, equal unlabored respirations, skin warm/dry/pink. 19:05 Reassessment: PATIENT REQUESTS TO SPEAK WITH DR. ZAMARRIPA. db 19:41 Reassessment: Patient appears in no apparent distress at this time. Patient and/or jb4 family updated on plan of care and expected duration. Pain level reassessed. Patient is alert, oriented x 3, equal unlabored respirations, skin warm/dry/pink. D/c pending ride home. 20:19 Reassessment: Patient appears in no apparent distress at this time. Patient and/or jb4 family updated on plan of care and expected duration. Pain level reassessed. Patient is alert, oriented x 3, equal unlabored respirations, skin warm/dry/pink. Vital Signs: 16:32 BP 155 / 87; Pulse 71; Resp 22; Temp 97.1(TE); Pulse Ox 100% ; Weight 73.03 kg; Height cm10 6 ft. 0 in. ; Pain 10/10; 17:42 BP 171 / 82; Pulse 76; Resp 16; Pulse Ox 100% on R/A; db 18:30 BP 161 / 74; Pulse 76; Resp 20; Pulse Ox 99% on R/A; db 20:19 BP 170 / 85; Pulse 77; Resp 16; Pulse Ox 98% on R/A; jb4 16:32 Body Mass Index 21.84 (73.03 kg, 182.88 cm) cm10 16:32 Pain Scale: Adult cm10 ED Course: 16:17 Patient arrived in ED. im 16:33 Triage completed. cm10 16:34 Tito Lees DO is Attending Physician. ms3 16:34 Arm band placed on Patient placed in an exam room, on a stretcher. cm10 17:00 Mara Rajan, RN is Primary Nurse. db 17:00 Initial lab(s) drawn, by me, sent to lab. Urine collected: clean catch specimen, arline jb4 blood. Inserted saline lock: 18 gauge in right antecubital area, using aseptic technique. Blood collected. 17:06 CMP Sent. jb4 17:06 CBC with Diff Sent. jb4 17:35 Patient has correct armband on for positive identification. Bed in low position. Call db light in reach. Side rails up X 1. Provided Education on: . Pulse ox on. NIBP on. Warm blanket given. Pillow given. 17:41 CT Abd/Pelvis - Without Contrast In Process Unspecified. EDMS 18:21 Attending Physician role handed off by Tito Lees DO sp3 18:21 Ceferino Zamarripa MD is Attending Physician. sp3 20:19 Provided Education on: discharge instructions, catheter care.. jb4 20:19 No provider procedures requiring assistance completed. IV discontinued, intact, jb4 bleeding controlled, No redness/swelling at site. Pressure dressing applied. Administered Medications: 17:09 Drug: morphine IVP or IV 4 mg IVP once over 4 mins Route: IVP; Infused Over: 4 mins; db Site: right antecubital; 17:40 Follow up: Response: No adverse reaction; Pain is decreased db 19:02 Drug: morphine IVP or IV 4 mg IVP once over 4 mins Route: IVP; Infused Over: 4 mins; db Site: right antecubital; 20:21 Follow up: Response: No adverse reaction; Marked relief of symptoms; Pain is decreased; jb4 RASS: Alert and Calm (0) Medication: 20:19 VIS not applicable for this client. jb4 Outcome: 18:54 Discharge ordered by . sp3 20:19 Discharged to home ambulatory, with family, jb4 20:19 Condition: stable 20:19 Discharge instructions given to patient, Instructed on discharge instructions, follow up and referral plans. Demonstrated understanding of instructions, follow-up care, 20:22 Patient left the ED. jb4 Signatures: Dispatcher [employer] EDKris Vallejo RN RN jb4 Tito Lees DO DO ms3 Ceferino Zamarripa MD MD sp3 Mara Rajan, [place] RN db Maggi Gould Clarissa, RN RN cm10 Corrections: (The following items were deleted from the chart) 17:18 17:06 Urinalysis+U.LAB.BRZ drawn and sent. jb4 EDPR 19:41 19:41 Reassessment: Patient appears in no apparent distress at this time. Patient jb4 and/or family updated on plan of care and expected duration. Pain level reassessed. Patient is alert, oriented x 3, equal unlabored respirations, skin warm/dry/pink. jb4 20:22 20:19 Discharged to home ambulatory, jb4 jb
[2024-03-19 20:26] VITALS: TEMP 97.1
[2024-03-19 20:30] VITALS: BP 170/85; O2SAT 98
== END 2024-03-19 20:22 | disposition home or self-care (01) ==
LOC: ER 16:16
DX: G89.18 Other acute postprocedural pain (principal); Z96.0 Presence of urogenital implants; Z87.442 Personal history of urinary calculi
CPT/HCPCS: 36415; 74176; 80053; 81015; 85025; 87086; 87088; 96374; 99284

== ENCOUNTER 2024-03-26 12:16 | Emergency (ER) | payer OTHER, MEDICARE ==
--- NOTE | 2024-03-26 14:37 | ER ---
Nurse's Notes [facility] Name: Martín Bee Age: 84 yrs Sex: Male : 1940 Arrival Date: 03/26/2024 Time: 12:16 Bed Treatment Private MD: Diagnosis: Encounter for removal of urinary catheter Presentation: 03/26 12:46 Chief complaint: Patient states: "I just need my catheter taken out, they told me to aa5 come in any time after Tuesday". Coronavirus screen: At this time, the client does not indicate any symptoms associated with coronavirus-19. Ebola Screen: Patient denies travel to an Ebola-affected area in the 21 days before illness onset. Initial Sepsis Screen: Does the patient meet any 2 criteria? No. Patient's initial sepsis screen is negative. Does the patient have a suspected source of infection? No. Patient's initial sepsis screen is negative. Risk Assessment: Do you want to hurt yourself or someone else? Patient reports no desire to harm self or others. Onset of symptoms was March 26, 2024. 12:46 Method Of Arrival: Ambulatory aa5 12:46 Acuity: CHANDLER 4 aa5 Historical: - Allergies: 12:45 No Known Allergies; aa5 - PMHx: 12:45 Hypercholesterolemia; Hypertensive disorder; Kidney stone; Pancreatitis; aa5 - PSHx: 12:45 stent in ureter; Lithotripsy; Kidney stent; aa5 - Immunization history:: Adult Immunizations unknown. - Infectious Disease History:: Denies. - Social history:: Smoking status: Patient denies any tobacco usage or history of. Assessment: 14:20 Reassessment: de leon catheter removed by Lizeth, TAWANDA and nursing students, reported that iw there w sno arline blood, pt has urinal and was instructed to leave a urine specimen at bedside. Vital Signs: 12:46 BP 151 / 70; Pulse 68; Resp 18 S; Temp 97.8(TE); Pulse Ox 99% on R/A; Weight 73.48 kg aa5 (R); Height 6 ft. 0 in. (R); 12:46 Body Mass Index 21.97 (73.48 kg, 182.88 cm) aa5 ED Course: 12:20 Patient arrived in ED. mg5 12:22 Shabana Barrera PA-C is PHCP. sb4 12:22 Dat Bryant MD is Attending Physician. sb4 12:44 Arm band placed on. aa5 12:47 Triage completed. aa5 14:17 Una Rodriguez, RN is Primary Nurse. iw Administered Medications: No medications were administered Outcome: 14:37 Discharge ordered by . sb4 14:38 Discharged to home ambulatory, iw 14:38 Discharge instructions given to patient, instructions given by SARAH Donald , pt did not want to wait for discharge papers 14:39 Patient left the ED. iw Signatures: Una Rodriguez, RN RN iw Erica Joseph RN RN aa5 Shabana Barrera PA-C PA-C sb4 Savannah Yun mg5 Corrections: (The following items were deleted from the chart) 12:47 12:46 BP 151 / 70; Pulse 68bpm; Resp 18bpm; Spontaneous; Pulse Ox 99% RA; Temp 97.8F aa5 Temporal; aa5 23:27 13:50 Reassessment: de leon catheter removed by TAWANDA Stanley and nursing students, reported iw that there w sno arline blood, pt has urinal and was instructed to leave a urine specimen at bedside iw
--- NOTE | 2024-03-26 14:37 | EDPHYS ---
Physician Documentation [facility] Name: Martín Bee Age: 84 yrs Sex: Male : 1940 Arrival Date: 03/26/2024 Time: 12:16 Bed Treatment Private MD: ED Physician Dat Bryant HPI: 03/26 14:04 This 84 yrs old Male presents to ER via Ambulatory with complaints of CATHETER REMOVAL. sb4 14:06 Patient states that he had a right ureteral stent placed 2 weeks ago. States that sb4 shortly after the procedure, he was unable to urinate and presented to the ED. States he had a De Leon catheter placed and followed up with urology the next day who told him he needed to keep the De Leon catheter in for about 1 week and then it could be removed. States that the De Leon catheter has been draining adequately and he is here to have the catheter removed. Historical: - Allergies: 12:45 No Known Allergies; aa5 - PMHx: 12:45 Hypercholesterolemia; Hypertensive disorder; Kidney stone; Pancreatitis; aa5 - PSHx: 12:45 stent in ureter; Lithotripsy; Kidney stent; aa5 - Immunization history:: Adult Immunizations unknown. - Infectious Disease History:: Denies. - Social history:: Smoking status: Patient denies any tobacco usage or history of. ROS: 14:06 Constitutional: Negative for fever, chills, and weight loss, sb4 14:06 All other systems are negative, Exam: 14:06 Constitutional: This is a well developed, well nourished patient who is awake, alert, sb4 and in no acute distress. Vital Signs: 12:46 BP 151 / 70; Pulse 68; Resp 18 S; Temp 97.8(TE); Pulse Ox 99% on R/A; Weight 73.48 kg aa5 (R); Height 6 ft. 0 in. (R); 12:46 Body Mass Index 21.97 (73.48 kg, 182.88 cm) aa5 MDM: 12:54 Medical Screening Exam initiated sb4 14:37 Data reviewed: vital signs, nurses notes, and as a result, I will discharge patient. sb4 Counseling: I had a detailed discussion with the patient and/or guardian regarding the historical points, exam findings, and any diagnostic results supporting the discharge/admit diagnosis, to return to the emergency department if symptoms worsen or persist or if there are any questions or concerns that arise at home. ED course: Patient was able to void a small amount after catheter removal. I recommended fluid intake and a more significant amount of urinary output before discharge but he wanted to go home. States that he will return if he cannot void or his pain returns. 03/26 12:47 Order name: Dane. Order: remove de leon catheter; Complete Time: 14:17 sb4 Administered Medications: No medications were administered Disposition: 17:21 Co-signature as Attending Physician, Dat Bryant MD I reviewed the patient's care rn provided by the Advanced Practice Provider and agree with the diagnosis and treatment plan. Disposition Summary: 03/26/24 14:37 Discharge Ordered Notes: Location: Home sb4 Problem: new sb4 Symptoms: have improved sb4 Condition: Stable sb4 Diagnosis - Encounter for removal of urinary catheter sb4 Followup: sb4 - With: Emergency Department - When: As needed - Reason: Worsening of condition Forms: - Medication Reconciliation Form sb4 - Antibiotic Education sb4 - Prescription Opioid Use sb4 - Patient Portal Instructions sb4 - Leadership Thank You Letter sb4 Signatures: Dispatcher [employer] EDDat Ernst MD MD rn Calderon, Audri, RN RN aa5 Shabana Barrera PA-C PAKwasi sb4 Corrections: (The following items were deleted from the chart) 14:38 14:37 ED course: Patient wanted to leave before voiding after catheter removal. I sb4 advised against this but he was insistent. States that he will return if he cannot void or his pain returns. sb4
[2024-03-26 14:55] VITALS: BP 151/70; TEMP 97.8; O2SAT 99
== END 2024-03-26 14:39 | disposition home or self-care (01) ==
LOC: ER 12:16
DX: Z46.6 Encounter for fitting and adjustment of urinary device (principal)
CPT/HCPCS: 99282